=== PATIENT | male | born 1940 | race Caucasian/White ===

== ENCOUNTER 2018-12-17 03:53 | Emergency (ER) | payer MEDICARE, OTHER ==
[2018-12-17] MEDS ORDERED: Lidocaine 2% Jelly 10 ML Urojet MUCMEM ONE (04:03)
[2018-12-17] MEDS ORDERED: Lidocaine 2% Jelly 10 ML Urojet ONE (04:08)
--- NOTE | 2018-12-17 04:26 | EDM.PDOC ---
ED HPI GENERAL MEDICAL PROBLEM - General Stated Complaint: CANT PEE Time Seen by Provider: 12/17/18 03:55 Source of Information: Reports: Patient History Limitations: Reports: No Limitations - History of Present Illness INITIAL COMMENTS - FREE TEXT/NARRATIVE: 78-year-old male who has had ongoing problems with hematuria after radiation for prostate cancer. He had some hematuria a year ago and the urologists did a cystoscopy and cauterized some spots. He started redeveloping hematuria a month ago, the radiologist did a cystoscopy at that time and did not do any intervention. Unfortunately the bleeding has persisted and tonight he developed some large clots that caused urinary obstruction. He tried to self catheterize himself but was unsuccessful. He arrived very uncomfortable with acute urinary retention. He does not feel ill or feverish. Onset: Gradual Associated Symptoms: Reports: No Other Symptoms Bladder Pain Score (Numeric/FACES): 10 - Related Data Allergies Allergy/AdvReac Type Severity Reaction Status Date / Time No Known Allergies Allergy Verified 12/17/18 08:36 Home Meds: Home Meds Amitriptyline [Elavil] 25 mg PO BEDTIME 12/17/18 [History] Linagliptin [Tradjenta] 1 tab PO DAILY 12/17/18 [History] Losartan [Cozaar] 100 mg PO DAILY 12/17/18 [History] Omeprazole 1 tab PO BID 12/17/18 [History] amLODIPine [Norvasc] 5 mg PO DAILY 12/17/18 [History] metFORMIN [Glucophage] 500 mg PO BIDMEALS 12/17/18 [History] predniSONE [Prednisone] 1 tab PO ASDIRECTED 12/17/18 [History] ED ROS GENERAL - Review of Systems Review Of Systems: See Below Constitutional: Denies: Fever, Chills Respiratory: Denies: Shortness of Breath Cardiovascular: Denies: Chest Pain GI/Abdominal: Reports: Abdominal Pain, Distension : Reports: Urinary Retention ED EXAM, RENAL/ - Physical Exam Exam: See Below Exam Limited By: No Limitations General Appearance: Alert, Moderate Distress Respiratory/Chest: No Respiratory Distress GI/Abdominal: Distended, Tender (Male) Exam: Suprapubic Fullness, Other (Patient had some blood at the urethral meatus) Course - Vital Signs Last Recorded V/S: Last Vital Signs Temp 97.2 F 12/17/18 04:28 Pulse 117 H 12/17/18 04:28 Resp 14 12/17/18 04:28 BP 141/80 H 12/17/18 04:28 Pulse Ox 96 12/17/18 04:28 - Orders/Labs/Meds Meds: Medications Discontinued Medications Generic Name Dose Route Start Last Admin Trade Name Jared PRN Reason Stop Dose Admin Lidocaine HCl 10 ml 12/17/18 04:03 12/17/18 04:28 Xylocaine 2% Jelly MUCMEM 12/17/18 04:04 10 ml ONETIME ONE Administration Lidocaine HCl Confirm 12/17/18 04:08 Xylocaine 2% Jelly Administered 12/17/18 04:09 Dose 10 ml .ROUTE .STK-MED ONE - Re-Assessments/Exams Free Text/Narrative Re-Assessment/Exam: 12/17/18 04:25 Using a Urojet for anesthesia, an indwelling Jacobson was placed by nursing with some difficulty due to large blood clots. Once the blood clots were expelled, a Jacobson was placed and 500 mL of bloody urine was released. The patient's symptoms resolved. The Jacobson will remain in place until he can call his urologist in the next 24 hours. He needs to return if obstruction recurs. Departure - Departure Time of Disposition: 05:10 Disposition: Home, Self-Care 01 Clinical Impression: Acute urinary retention Hematuria Qualifiers: Hematuria type: gross Qualified Code(s): R31.0 - Gross hematuria - Discharge Information Instructions: Acute Urinary Retention, Male Referrals: PCP,None [Primary Care Provider] - Forms: ED Department Discharge Care Plan Goals: Leave the catheter in place until you have a chance to talk to your urologist. Return if you read develop obstruction despite the catheter being in place.
== END 2018-12-17 05:05 | disposition home or self-care (01) ==
LOC: JP.ED 03:53
DX: R33.9 Retention of urine, unspecified (principal); R31.0 Gross hematuria; Z79.899 Other long term (current) drug therapy
CPT/HCPCS: 51702; 51798; 99283

== ENCOUNTER 2018-12-17 07:59 | Inpatient (IN) | payer MEDICARE, OTHER ==
--- NOTE | 2018-12-17 08:51 | EDM.PDOC ---
ED HPI GENERAL MEDICAL PROBLEM - General Chief Complaint: Genitourinary Problem Stated Complaint: UNABLE TO URINATE Time Seen by Provider: 12/17/18 08:35 Source of Information: Reports: Patient, Old Records, RN History Limitations: Reports: No Limitations - History of Present Illness INITIAL COMMENTS - FREE TEXT/NARRATIVE: 78 yo male presents with grossly bloody urine and a plugged catheter. He was seen a few hrs ago for this as well. He is going to be following up with urology for the bloody urine. He denies CP, SOB, hx of afib, or dizziness with standing. He is not aware of his heart beating fast. He has no hx of tachycardia that he is aware of. He has not missed any of his home meds lately. Onset: Today (duran plugging. Is not aware of the tachycardia, but his HR when here a few hrs ago was 117.) Onset Date: 12/17/18 Duration: Hour(s): (duran issue. Unsure about the tachycardia.) Location: Reports: Chest, Pelvis (bladder distention.) Quality: Reports: Pressure (bladder) Improves with: Reports: Other (relief earlier today with duran irrigation. ) Worsens with: Reports: Other (time) Context: Reports: Other (hx of prostate issues.) Associated Symptoms: Reports: Other (tachycardia that he was not aware of. ) Treatments MIGRATION SPECIALIST: Reports: Other (see below) (none) bladder Pain Score (Numeric/FACES): 10 - Related Data Allergies Allergy/AdvReac Type Severity Reaction Status Date / Time No Known Allergies Allergy Verified 12/17/18 08:36 Home Meds: Home Meds Amitriptyline [Elavil] 25 mg PO BEDTIME 12/17/18 [History] Linagliptin [Tradjenta] 1 tab PO DAILY 12/17/18 [History] Losartan [Cozaar] 100 mg PO DAILY 12/17/18 [History] Omeprazole 1 tab PO BID 12/17/18 [History] amLODIPine [Norvasc] 5 mg PO DAILY 12/17/18 [History] metFORMIN [Glucophage] 500 mg PO BIDMEALS 12/17/18 [History] predniSONE [Prednisone] 1 tab PO ASDIRECTED 12/17/18 [History] Past Medical History Genitourinary History: Reports: Other (See Below) Other Genitourinary History: prostate cancer - Infectious Disease History Infectious Disease History: Reports: Chicken Pox - Past Surgical History Male Surgical History: Reports: Prostate Biopsy, Prostatectomy Social & Family History - Caffeine Use Caffeine Use: Reports: Coffee ED ROS GENERAL - Review of Systems Review Of Systems: See Below Constitutional: Reports: No Symptoms HEENT: Reports: No Symptoms Respiratory: Reports: No Symptoms Cardiovascular: Reports: No Symptoms Endocrine: Reports: No Symptoms GI/Abdominal: Reports: No Symptoms : Reports: Hematuria, Other (bladder pressure.) Musculoskeletal: Reports: No Symptoms Skin: Reports: No Symptoms Neurological: Reports: No Symptoms Psychiatric: Reports: No Symptoms ED EXAM, RENAL/ - Physical Exam Exam: See Below Exam Limited By: No Limitations General Appearance: Alert, WD/WN, No Apparent Distress Eye Exam: Bilateral Eye: Normal Inspection Ears: Normal External Exam, Normal Canal, Hearing Grossly Normal, Normal TMs Nose: Normal Inspection, No Blood Throat/Mouth: Normal Inspection, Normal Lips, Normal Oropharynx, Normal Voice, No Airway Compromise Head: Atraumatic, Normocephalic Neck: Normal Inspection Respiratory/Chest: No Respiratory Distress, Lungs Clear, Normal Breath Sounds, No Accessory Muscle Use Cardiovascular: Regular Rate, Rhythm, No Edema, Tachycardia. No: Irregularly Irregular GI/Abdominal: Normal Bowel Sounds, Soft, Non-Tender, No Distention (Male) Exam: Other (duran has grossly red color to urine.) Back Exam: Normal Inspection Extremities: Normal Inspection, Normal Range of Motion, Non-Tender, No Pedal Edema Neurological: Alert, Oriented, CN II-XII Intact, Normal Cognition, No Motor/ Sensory Deficits Psychiatric: Normal Affect, Normal Mood Skin Exam: Warm, Dry, Intact, Normal Color, No Rash EKG INTERPRETATION EKG Date: 12/17/18 Time: 08:35 Rhythm: NSR Rate (Beats/Min): 124 [employer]: Normal P-Wave: Present QRS: Normal ST-T: Normal QT: Normal Comparison: NA - No Prior EKG Course - Vital Signs Text/Narrative:: Dr. Millan called @ 0930h Last Recorded V/S: Last Vital Signs Temp 36.8 C 12/17/18 09:08 Pulse 133 H 12/17/18 09:08 Resp 28 H 12/17/18 09:08 BP 174/73 H 12/17/18 09:08 Pulse Ox 98 12/17/18 09:08 Orthostatic Blood Pressure [ 116/48 Standing] Orthostatic Blood Pressure [ 174/73 Sitting] Orthostatic Blood Pressure [ 179/92 Supine] - Orders/Labs/Meds Orders: Active Orders 24 hr Category Date Time Status Cardiac Monitoring [RC] .As Directed Care 12/17/18 08:40 Active EKG Documentation Completion [RC] ASDIRECTED Care 12/17/18 08:40 Active Orthostatic Vital Signs [RC] ASDIRECTED Care 12/17/18 08:45 Active CULTURE URINE [RM] Stat Lab 12/17/18 09:25 Ordered D-DIMER QUANTITATIVE [COAG] Stat Lab 12/17/18 09:26 Ordered Lactated Ringers [Ringers, Lactated] 1,000 ml Med 12/17/18 09:25 Active IV BOLUS EKG 12 Lead [EK] Routine Ther 12/17/18 08:40 Ordered Medication Orders Lactated Ringer's (Ringers, Lactated) 1,000 mls @ 1,000 mls/hr IV BOLUS ONE Stop: 12/17/18 10:24 Labs: Laboratory Tests 12/17/18 12/17/18 12/17/18 Range/Units 08:50 08:50 08:50 WBC 7.6 (4.5-11.0) K/uL RBC 3.99 L (4.30-5.90) M/uL Hgb 10.6 L (12.0-15.0) g/dL Hct 34.7 L (40.0-54.0) % MCV 87 (80-98) fL MCH 27 (27-31) pg MCHC 31 L (32-36) % Plt Count 86 L (150-400) K/uL Sodium 134 L (140-148) mmol/L Potassium 4.6 (3.6-5.2) mmol/L Chloride 98 L (100-108) mmol/L Carbon Dioxide 25 (21-32) mmol/L Anion Gap 15.6 H (5.0-14.0) mmol/L BUN 18 (7-18) mg/dL Creatinine 1.4 H (0.8-1.3) mg/dL Est Cr Clr Drug Dosing 46.35 mL/min Estimated GFR (MDRD) 49 L (>60) Glucose 240 H (74-106) mg/dL Lactic Acid 3.2 H (0.4-2.0) mmol/L Calcium 9.9 (8.5-10.1) mg/dL Troponin I < 0.017 (0.000-0.056) ng/mL Meds: Medications Generic Name Dose Route Start Last Admin Trade Name Jasonq PRN Reason Stop Dose Admin Lactated Ringer's 1,000 mls @ 1,000 mls/hr 12/17/18 09:25 Ringers, Lactated IV 12/17/18 10:24 BOLUS ONE Departure - Departure Time of Disposition: 09:50 Disposition: Admitted As Inpatient 68 Condition: Fair Clinical Impression: Gross hematuria, Orthostatic hypotension, Tachycardia, Elevated lactic acid level, Elevated glucose Anemia Qualifiers: Anemia type: iron deficiency Iron deficiency anemia type: chronic blood loss Qualified Code(s): D50.0 - Iron deficiency anemia secondary to blood loss ( chronic) - Discharge Information *PRESCRIPTION DRUG MONITORING PROGRAM REVIEWED*: No *COPY OF PRESCRIPTION DRUG MONITORING REPORT IN PATIENT WILFREDO: No Referrals: PCP,None [Primary Care Provider] - Forms: ED Department Discharge - My Orders Last 24 Hours: My Active Orders 12/17/18 08:40 Cardiac Monitoring [RC] .As Directed EKG Documentation Completion [RC] ASDIRECTED EKG 12 Lead [EK] Routine 12/17/18 08:45 Orthostatic Vital Signs [RC] ASDIRECTED 12/17/18 09:25 CULTURE URINE [RM] Stat Lactated Ringers [Ringers, Lactated] 1,000 ml IV BOLUS 12/17/18 09:26 D-DIMER QUANTITATIVE [COAG] Stat - Assessment/Plan Last 24 Hours: My Active Orders 12/17/18 08:40 Cardiac Monitoring [RC] .As Directed EKG Documentation Completion [RC] ASDIRECTED EKG 12 Lead [EK] Routine 12/17/18 08:45 Orthostatic Vital Signs [RC] ASDIRECTED 12/17/18 09:25 CULTURE URINE [RM] Stat Lactated Ringers [Ringers, Lactated] 1,000 ml IV BOLUS 12/17/18 09:26 D-DIMER QUANTITATIVE [COAG] Stat
[2018-12-17] MEDS ORDERED: Lactated Ringers 1,000 ML IV ONE (09:25)
[2018-12-17] MEDS ORDERED: Sodium Chloride 0.9% 10 ML Syringe FLUSH ONE (10:11)
[2018-12-17] MEDS ORDERED: Sodium Chloride 0.9% 80 ML IV ONE (10:11)
[2018-12-17] MEDS ORDERED: Iopamidol 755 Mg/ML 100 ML Bottle IV SCH (10:15)
[2018-12-17] MEDS ORDERED: Belladonna Alkaloids/Opium 16.2-30 MG Supp RECTAL ONE (11:20)
[2018-12-17] MEDS ORDERED: HYDROmorphone 0.5 MG/0.5 ML Syringe IVPUSH ONE (11:27)
[2018-12-17] MEDS ORDERED: Lidocaine 2% Jelly 10 ML Urojet MUCMEM ONE (11:31)
[2018-12-17] MEDS ORDERED: Sodium Chloride 0.9% 1,000 ML IV SCH ×2 (12:00→15:45)
--- NOTE | 2018-12-17 12:06 | CRLCT ---
HISTORY: Tachycardia, elevated D-dimer. TECHNIQUE: Intravenous contrast enhanced CT of the chest. 80 mL of Isovue-370 intravenous contrast administered. COMPARISON: No prior. FINDINGS: There is no acute pulmonary embolism. No thoracic aortic aneurysm. Coronary arteriosclerotic vascular calcifications. Trace pericardial fluid likely physiologic. Increased number of mediastinal lymph nodes in the prevascular, paratracheal and subcarinal distributions. 1.1 cm short axis right paratracheal lymph node is seen on image 445 series 4. 1 cm short axis prevascular lymph node image #64 series 4. 1.3 cm short axis subcarinal lymph node image #77. Small axillary lymph nodes are not enlarged by imaging criteria. There are calcified left hilar lymph nodes likely related prior granulomatous infection. - There are areas of subpleural reticulation within both lungs with spur ground-glass opacity. Some traction bronchiectasis is noted, especially within the right lower lobe. This may indicate that the interstitial opacities relate to pulmonary fibrosis. Linear atelectasis or scarring within the lingula and right upper lobe anteriorly. 4 mm right middle lobe pulmonary nodule image #92 of series 4. Slight nodularity along the major fissure on the right. No pleural effusion or pneumothorax. No endotracheal or proximal endobronchial mass. - Degenerative changes of the spine. There are sclerotic lesions involving multiple thoracic vertebral bodies and ribs compatible with metastases. - Limited evaluation the upper abdomen demonstrates probable fatty infiltration of liver. IMPRESSION: 1. No acute pulmonary embolism. 2. Mild mediastinal adenopathy. 3. Areas of subpleural reticulation and within the right lower lobe traction bronchiectasis which may indicate fibrosis. 4. A few small subpleural pulmonary nodules. 5. 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 Does the patient have prostate cancer? Dictated by Everardo Camargo MD @ 12/17/2018 12:04:25 PM Please note that all CT scans at this facility use dose modulation, iterative reconstruction, and/or weight-based dosing when appropriate to reduce radiation dose to as low as reasonably achievable. Dictated by: Everardo Camargo MD @ 12/17/2018 12:04:28 (Electronically Signed)
[2018-12-17] MEDS ORDERED: Sodium Chloride 0.9% 10 ML Syringe FLUSH PRN (12:17)
[2018-12-17] MEDS ORDERED: Lactated Ringers 1,000 ML IV SCH (12:30)
--- NOTE | 2018-12-17 12:32 | PCM.HP ---
H&P History of Present Illness - General Date of Service: 12/17/18 Admit Problem/Dx: Admission Diagnosis/Problem Admission Diagnosis/Problem Complicated urinary tract infection Source of Information: Family, Provider. No: Patient History Limitations: Reports: Altered Mental Status - History of Present Illness Initial Comments - Free Text/Narative: CC: I can't pancho Lopez presents to the emergency room with his niece not too long after a discharge from the emergency room where he had initially presented with hematuria. After having a Jacobson catheter placed his abdominal pain was resolved and he was able to pass urine although it remained bloody. He did not have any complaints at that time and wished to go home. He returned a short while later after the catheter had apparently plugged and he was unable to pass urine. He is very lethargic at this time and is unable to answer any questions. History is gathered from the em personnel and from his niece. She reports off and on difficulties with hematuria over the past 2 days. He was very uncomfortable because of the blood clots and probable urinary retention. He had not reported any fevers or chills. Appetite had been normal. Mentation had been normal. He had been telling them that he felt well other than the abdominal pain from the urinary retention. He has had 2 similar episodes in the past, one which required cystoscopy and cauterization and 1 which resolved after a couple of days. Workup in the emergency room was suggestive of a complicated urinary tract infection with gross hematuria and sepsis. He did have an elevated d-dimer so a CT pulmonary angiogram was completed and did not show any evidence for pulmonary embolism. He has received a 30 mL/kg bolus of IV fluids. Cultures have been obtained. He is receiving IV antibiotics. a three-way Jacobson catheter for irrigation has been inserted. He will be admitted to the intensive care unit for further management. bladder Pain Score (Numeric/FACES): 10 - Related Data Allergies/Adverse Reactions: Allergies Allergy/AdvReac Type Severity Reaction Status Date / Time No Known Allergies Allergy Verified 12/17/18 08:36 Home Medications: Home Meds Amitriptyline [Elavil] 25 mg PO BEDTIME 12/17/18 [History] Linagliptin [Tradjenta] 1 tab PO DAILY 12/17/18 [History] Losartan [Cozaar] 100 mg PO DAILY 12/17/18 [History] Omeprazole 1 tab PO BID 12/17/18 [History] amLODIPine [Norvasc] 5 mg PO DAILY 12/17/18 [History] metFORMIN [Glucophage] 500 mg PO BIDMEALS 12/17/18 [History] predniSONE [Prednisone] 1 tab PO ASDIRECTED 12/17/18 [History] Past Medical History HEENT History: Reports: Impaired Vision Cardiovascular History: Reports: High Cholesterol, Hypertension Genitourinary History: Reports: Other (See Below) Other Genitourinary History: prostate cancer Endocrine/Metabolic History: Reports: Diabetes, Type II Oncologic (Cancer) History: Reports: Prostate - Infectious Disease History Infectious Disease History: Reports: Chicken Pox - Past Surgical History Male Surgical History: Reports: Prostate Biopsy, Prostatectomy Social & Family History - Family History Family Medical History: Unobtainable - Tobacco Use Smoking Status *Q: Never Smoker Second Hand Smoke Exposure: No - Caffeine Use Caffeine Use: Reports: Coffee - Alcohol Use Alcohol Use History: No - Recreational Drug Use Recreational Drug Use: No H&P Review of Systems - Review of Systems: Review Of Systems: Unable To Obtain (pt very lethargic and unable to provide reliable history) Exam - Exam Exam: See Below - Vital Signs Vital Signs: Last Vital Signs Temp 36.8 C 12/17/18 09:08 Pulse 133 H 12/17/18 09:08 Resp 28 H 12/17/18 09:08 BP 174/73 H 12/17/18 09:08 Pulse Ox 98 12/17/18 09:08 Orthostatic Blood Pressure [ 116/48 Standing] Orthostatic Blood Pressure [ 174/73 Sitting] Orthostatic Blood Pressure [ 179/92 Supine] Weight: 99.79 kg - Exam Quality Assessment: No: Supplemental Oxygen General: Alert, Mild Distress, Lethargic. No: Oriented HEENT: Conjunctiva Clear. No: Mucosa Moist & [place] (dry), Scleral Icterus Neck: Supple, Trachea Midline. No: Lymphadenopathy Lungs: Clear to Auscultation. No: Normal Respiratory Effort (increased work of breathing ), Crackles Cardiovascular: Regular Rhythm, Tachycardia GI/Abdominal Exam: Normal Bowel Sounds, Soft, Non-Tender, No Distention Extremities: No Pedal Edema. No: Increased Warmth Skin: Warm, Dry Neuro Extensive - Mental Status: Alert, Slow Response to Commands. No: Oriented x3 Neuro Extensive - Motor, Sensory, Reflexes: No: Abnormal Motor, Tremor Psychiatric: Alert. No: Agitated - Patient Data Lab Results Last 24 hrs: Laboratory Results - last 24 hr 12/17/18 12/17/18 12/17/18 Range/Units 08:50 08:50 08:50 WBC 7.6 (4.5-11.0) K/uL RBC 3.99 L (4.30-5.90) M/uL Hgb 10.6 L (12.0-15.0) g/dL Hct 34.7 L (40.0-54.0) % MCV 87 (80-98) fL MCH 27 (27-31) pg MCHC 31 L (32-36) % Plt Count 86 L (150-400) K/uL D-Dimer, Quantitative (0.0-400.0) ng/mL Sodium 134 L (140-148) mmol/L Potassium 4.6 (3.6-5.2) mmol/L Chloride 98 L (100-108) mmol/L Carbon Dioxide 25 (21-32) mmol/L Anion Gap 15.6 H (5.0-14.0) mmol/L BUN 18 (7-18) mg/dL Creatinine 1.4 H (0.8-1.3) mg/dL Est Cr Clr Drug Dosing 46.35 mL/min Estimated GFR (MDRD) 49 L (>60) Glucose 240 H (74-106) mg/dL Lactic Acid 3.2 H (0.4-2.0) mmol/L Calcium 9.9 (8.5-10.1) mg/dL Troponin I < 0.017 (0.000-0.056) ng/mL 12/17/18 Range/Units 09:26 WBC (4.5-11.0) K/uL RBC (4.30-5.90) M/uL Hgb (12.0-15.0) g/dL Hct (40.0-54.0) % MCV (80-98) fL MCH (27-31) pg MCHC (32-36) % Plt Count (150-400) K/uL D-Dimer, Quantitative 496 H (0.0-400.0) ng/mL Sodium (140-148) mmol/L Potassium (3.6-5.2) mmol/L Chloride (100-108) mmol/L Carbon Dioxide (21-32) mmol/L Anion Gap (5.0-14.0) mmol/L BUN (7-18) mg/dL Creatinine (0.8-1.3) mg/dL Est Cr Clr Drug Dosing mL/min Estimated GFR (MDRD) (>60) Glucose (74-106) mg/dL Lactic Acid (0.4-2.0) mmol/L Calcium (8.5-10.1) mg/dL Troponin I (0.000-0.056) ng/mL Result Diagrams: 12/17/18 08:50 12/17/18 08:50 Imaging Impressions Last 24 hrs: CT chest angio - images personally reviewed - lung are clear. No PE, mass, infiltrate or effusion. *Q Meaningful Use (ADM) - VTE *Q VTE Pharmacological Contraindications *Q: Active Hemorrhage - VTE Risk Assess *Q Each Risk Factor Represents 1 Point: Obesity ( BMI > 25 kg/m2), Sepsis Total Score 1 Point Risk Factors: 2 Each Risk Factor Represents 2 Points: Malignancy (present or previous) Total Score 2 Point Risk Factors: 2 Each Risk Factor Represents 3 Points: Age 75 Years or Greater Total Score 3 Point Risk Factors: 3 Each Risk Factor Represents 5 Points: None Total Score 5 Point Risk Factors: 0 Venous Thromboembolism Risk Factor Score *Q: 7 - Problem List (1) Complicated urinary tract infection SNOMED Code(s): 66914625 ICD Code: N39.0 - URINARY TRACT INFECTION, SITE NOT SPECIFIED Status: Acute Current Visit: Yes (2) Sepsis SNOMED Code(s): 09920283 ICD Code: A41.9 - SEPSIS, UNSPECIFIED ORGANISM Status: Acute Current Visit: Yes Qualifiers: Sepsis type: sepsis due to unspecified organism Qualified Code(s): A41.9 - Sepsis, unspecified organism (3) Gross hematuria SNOMED Code(s): 250267793 ICD Code: R31.0 - GROSS HEMATURIA Status: Acute Current Visit: Yes (4) KAIN (acute kidney injury) SNOMED Code(s): 09060385, 11980785 ICD Code: N17.9 - ACUTE KIDNEY FAILURE, UNSPECIFIED Status: Acute Current Visit: Yes (5) Essential hypertension SNOMED Code(s): 07491266 ICD Code: I10 - ESSENTIAL (PRIMARY) HYPERTENSION Status: Chronic Current Visit: Yes (6) Diabetes mellitus type 2 in obese SNOMED Code(s): 05234414 ICD Code: E11.69 - TYPE 2 DIABETES MELLITUS WITH OTHER SPECIFIED COMPLICATION ; E66.9 - OBESITY, UNSPECIFIED Status: Chronic Current Visit: Yes Problem List Initiated/Reviewed/Updated: Yes Orders Last 24hrs: Active Orders 24 hr Category Date Time Status Patient Status Manage Transfer [TRANSFER] Routine ADT 12/17/18 12:19 Ordered Cardiac Monitoring [RC] .As Directed Care 12/17/18 08:40 Active EKG Documentation Completion [RC] ASDIRECTED Care 12/17/18 08:40 Active Jacobson Catheter Insertion [Insert Urinary Catheter] [OM. Care 12/17/18 11:30 Ordered PC] Q24H Orthostatic Vital Signs [RC] ASDIRECTED Care 12/17/18 08:45 Active Peripheral IV Care [RC] . DIRECTED Care 12/17/18 12:17 Active Urinary Catheter Assessment [RC] ASDIRECTED Care 12/17/18 11:30 Active CULTURE BLOOD [BC] Stat Lab 12/17/18 12:10 Received CULTURE BLOOD [BC] Stat Lab 12/17/18 12:14 Received CULTURE URINE [RM] Stat Lab 12/17/18 09:34 Received Iopamidol [Isovue-370 (76%)] Med 12/17/18 10:15 Active 100 ml IV . DIRECTED Lactated Ringers [Ringers, Lactated] 1,000 ml Med 12/17/18 12:30 Active IV ASDIRECTED Sodium Chloride 0.9% [Normal Saline] 1,000 ml Med 12/17/18 12:00 Active IV ASDIRECTED Sodium Chloride 0.9% [Saline Flush] Med 12/17/18 12:17 Active 10 ml FLUSH ASDIRECTED PRN cefTAZidime Pentahydrate [Fortaz] 1 gm Med 12/17/18 14:00 Active Sodium Chloride 0.9% [Normal Saline] 50 ml IV Q8HR Peripheral IV Insertion Adult [OM.PC] Routine Oth 12/17/18 12:17 Ordered Resuscitation Status Routine Resus Stat 12/17/18 12:20 Ordered EKG 12 Lead [EK] Routine Ther 12/17/18 08:40 Ordered Medication Orders Ceftazidime 1 gm/ Sodium (Chloride) 50 mls @ 100 mls/hr IV Q8HR LAZARO Sodium Chloride (Normal Saline) 1,000 mls @ 999 mls/hr IV ASDIRECTED [facility] Stop: 12/17/18 13:01 Last Admin: 12/17/18 12:18 Dose: 999 mls/hr Lactated Ringer's (Ringers, Lactated) 1,000 mls @ 999 mls/hr IV ASDIRECTED [facility] Stop: 12/17/18 13:31 Iopamidol (Isovue-370 (76%)) 100 ml IV . DIRECTED [facility] Stop: 12/18/18 10:16 Last Admin: 12/17/18 10:49 Dose: 80 ml Sodium Chloride (Saline Flush) 10 ml FLUSH ASDIRECTED PRN PRN Reason: Keep Vein Open Assessment/Plan Comment:: ASSESSMENT AND PLAN - Complicated urinary tract infection with sepsis - patient is very tachycardic, lactic acid is elevated and he is very lethargic. Suspected source of infection as the urinary tract with recent self-catheterization and obvious gross hematuria. Blood and urine cultures have been obtained. IV fluid boluses administered. Broad-spectrum antibiotics initiated. -Intensive care unit admission -continue ceftazidime -Gentle fluids -Stress dose steroids with chronic use -Repeat lactic acid level -Low threshold to initiate vasopressors of hypotensive Gross hematuria - history of prostate cancer and radiation. 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 Fairly impressive hematuria at this time with clots and Jacobson catheter was not adequate to drain the bladder. A three-week catheter has been inserted. -Continuous bladder irrigation to keep urine light pink to clear -Repeat hemoglobin in the morning -Infection management as above Acute kidney injury - creatinine elevated at 1.4 with unknown baseline but no history of kidney disease. Likely related to sepsis. -Management as above and labs in the morning Type 2 diabetes mellitus - on only oral medications and well controlled by history. -Hold metformin Essential hypertension - did not take meds this morning, blood pressure is elevated but I'm very concerned that he may progress to hypotension with his sepsis so I will hold his medications for now. Prostate cancer - history of radiation to the prostate. Additional history unobtainable at this time. Maintenance issues - - DVT prophylaxis - mechanical - GI prophylaxis - IV PPI - Nutrition - as tolerated - Jacobson catheter - three-way irrigating catheter placed in the emergency room CODE STATUS - full code Admission justification - This patient will be admitted for inpatient services and is medically appropriate meeting medical necessity for inpatient admission as outlined in my documentation. I reasonably expect the patient will require inpatient services that span a period time over 2 midnights. I reasonably expect this patient to be discharged or transferred within 96 hours [facility]. Disposition - I would anticipate discharge home after the hospital stay Primary care physician - in [place] in [place] Marques Millan M.D.
[2018-12-17] MEDS: Acetaminophen 500 MG Tab PO ONE ×2 (12:40→12:46)
[2018-12-17] MEDS ORDERED: Acetaminophen 650 MG Supp RECTAL ONE (12:47)
[2018-12-17] MEDS ORDERED: Albuterol 0.083% 2.5 MG/3 ML Neb Soln NEB PRN (14:14)
[2018-12-17] MEDS ORDERED: Ondansetron 4 MG/2 ML SDV IV PRN (14:14)
[2018-12-17] MEDS ORDERED: Magnesium Hydroxide 400 MG/5 ML Susp 30 ML Cup PO PRN (14:14)
[2018-12-17] MEDS ORDERED: Ondansetron 4 MG Tab.DIS PO PRN (14:14)
[2018-12-17] MEDS: Sodium Chloride 0.9% 1,000 ML IV SCH (15:24)
[2018-12-17] MEDS ORDERED: Hydrocortisone Sodium Succinate 100 MG/2 ML SDV IVPUSH ONE (15:30)
[2018-12-17] MEDS: Ketorolac 30 MG/ML SDV IVPUSH PRN ×2 (15:36→21:40)
[2018-12-17] MEDS ORDERED: Pantoprazole 40 MG Vial IV SCH (16:00)
[2018-12-17] MEDS ORDERED: Sodium Chloride 0.9% 1,000 ML IV ONE (18:21)
[2018-12-17] MEDS: Acetaminophen 325 MG Tab PO PRN (21:42)
[2018-12-17] MEDS: LORazepam 2 MG/ML SDV IVPUSH PRN (21:56)
[2018-12-17] MEDS: Norepinephrine 4 MG in Dextrose 5% in Water 246 ML IV SCH ×2 (23:04)
[2018-12-18] MEDS: Sodium Chloride 0.9% 1,000 ML IV SCH ×3 (00:14→14:25)
[2018-12-18] MEDS ORDERED: Vancomycin 2 GM in Sodium Chloride 0.9% 500 ML IV ONE (01:30)
[2018-12-18] MEDS ORDERED: Vancomycin 1 GM SDV ONE (02:02)
[2018-12-18] MEDS: Norepinephrine 4 MG in Dextrose 5% in Water 246 ML IV SCH ×4 (07:17→16:44)
[2018-12-18] MEDS: HYDROmorphone 0.5 MG/0.5 ML Syringe IVPUSH PRN ×2 (08:30→17:56)
[2018-12-18] MEDS ORDERED: Ketorolac 30 MG/ML SDV IVPUSH PRN (08:35)
--- NOTE | 2018-12-18 09:22 | PCM.PN ---
- General Info Date of Service: 12/18/18 Subjective Update: Overnight the patient had persistent tachycardia and did develop hypotension despite aggressive volume resuscitation. He was started on norepinephrine and this was titrated to 9 g. Vital signs have stabilized with blood pressure maintaining with this dose of norepinephrine. Heart rate has been slowly declining is down to around 120 today. He did not have any fevers overnight. Urine culture and all 4 blood cultures are growing gram-negative rods. He is more awake and alert today. He is eating breakfast. No complaints of abdominal pain except when clots in the bladder clog his catheter. Ongoing hematuria which is fairly impressive. Functional Status: Reports: Pain Controlled, Tolerating Diet - Review of Systems Genitourinary: Reports: Pain - Patient Data Vitals - Most Recent: Last Vital Signs Temp 36.4 C 12/18/18 04:00 Pulse 97 12/18/18 07:00 Resp 20 12/18/18 07:00 BP 109/63 12/18/18 07:00 Pulse Ox 95 12/18/18 07:00 Orthostatic Blood Pressure [ 116/48 Standing] Orthostatic Blood Pressure [ 174/73 Sitting] Orthostatic Blood Pressure [ 179/92 Supine] Weight - Most Recent: 99.79 kg I&O - Last 24 Hours: Intake & Output 12/17/18 12/18/18 12/18/18 22:59 06:59 14:59 Intake Total 2300 3660 1500 Output Total 3000 Balance 2300 3660 -1500 Lab Results Last 24 Hours: Laboratory Results - last 24 hr 12/17/18 12/17/18 12/17/18 Range/Units 09:26 14:14 20:00 WBC (4.5-11.0) K/uL RBC (4.30-5.90) M/uL Hgb (12.0-15.0) g/dL Hct (40.0-54.0) % MCV (80-98) fL MCH (27-31) pg MCHC (32-36) % Plt Count (150-400) K/uL D-Dimer, Quantitative 496 H (0.0-400.0) ng/mL Sodium (140-148) mmol/L Potassium (3.6-5.2) mmol/L Chloride (100-108) mmol/L Carbon Dioxide (21-32) mmol/L Anion Gap (5.0-14.0) mmol/L BUN (7-18) mg/dL Creatinine (0.8-1.3) mg/dL Est Cr Clr Drug Dosing mL/min Estimated GFR (MDRD) (>60) Glucose (74-106) mg/dL Lactic Acid 6.6 H 6.6 H (0.4-2.0) mmol/L Calcium (8.5-10.1) mg/dL 12/18/18 12/18/18 12/18/18 Range/Units 00:10 04:15 04:48 WBC 28.1 H (4.5-11.0) K/uL RBC 3.36 L (4.30-5.90) M/uL Hgb 9.3 L (12.0-15.0) g/dL Hct 29.6 L (40.0-54.0) % MCV 88 (80-98) fL MCH 28 (27-31) pg MCHC 31 L (32-36) % Plt Count 80 L (150-400) K/uL D-Dimer, Quantitative (0.0-400.0) ng/mL Sodium (140-148) mmol/L Potassium (3.6-5.2) mmol/L Chloride (100-108) mmol/L Carbon Dioxide (21-32) mmol/L Anion Gap (5.0-14.0) mmol/L BUN (7-18) mg/dL Creatinine (0.8-1.3) mg/dL Est Cr Clr Drug Dosing mL/min Estimated GFR (MDRD) (>60) Glucose (74-106) mg/dL Lactic Acid 6.2 H 5.4 H (0.4-2.0) mmol/L Calcium (8.5-10.1) mg/dL 12/18/18 Range/Units 04:48 WBC (4.5-11.0) K/uL RBC (4.30-5.90) M/uL Hgb (12.0-15.0) g/dL Hct (40.0-54.0) % MCV (80-98) fL MCH (27-31) pg MCHC (32-36) % Plt Count (150-400) K/uL D-Dimer, Quantitative (0.0-400.0) ng/mL Sodium 139 L (140-148) mmol/L Potassium 5.3 H (3.6-5.2) mmol/L Chloride 107 (100-108) mmol/L Carbon Dioxide 21 (21-32) mmol/L Anion Gap 16.3 H (5.0-14.0) mmol/L BUN 25 H (7-18) mg/dL Creatinine 1.9 H (0.8-1.3) mg/dL Est Cr Clr Drug Dosing 34.15 mL/min Estimated GFR (MDRD) 35 L (>60) Glucose 256 H (74-106) mg/dL Lactic Acid (0.4-2.0) mmol/L Calcium 8.4 L D (8.5-10.1) mg/dL Arnold Results Last 24 Hours: Microbiology 12/17/18 12:10 Aerobic Blood Culture - Preliminary Blood - Arm, Left Anaerobic Blood Culture - Preliminary 12/17/18 12:14 Aerobic Blood Culture - Preliminary Blood - Arm, Right Anaerobic Blood Culture - Preliminary 12/17/18 09:34 Urine Culture - Preliminary Urine, Catheterized Med Orders - Current: Current Medications Acetaminophen (Tylenol) 650 mg PO Q4H PRN PRN Reason: Pain (Mild 1-3)/fever Last Admin: 12/17/18 21:42 Dose: 650 mg Albuterol (Proventil Neb Soln) 2.5 mg NEB Q4H PRN PRN Reason: Shortness Of Breath/wheezing Hydrocortisone Sodium Succinate (Solu-Cortef) 100 mg IVPUSH ONETIME ONE Stop: 12/18/18 09:31 Hydromorphone HCl (Dilaudid) 0.5 mg IVPUSH Q2H PRN PRN Reason: Pain (severe 7-10) Last Admin: 12/18/18 08:30 Dose: 0.5 mg Sodium Chloride (Normal Saline) 1,000 mls @ 100 mls/hr IV ASDIRECTED LAZARO Last Admin: 12/18/18 00:14 Dose: 100 mls/hr Ceftazidime 1 gm/ Sodium (Chloride) 50 mls @ 100 mls/hr IV Q8HR LAZARO Last Admin: 12/18/18 05:34 Dose: 100 mls/hr Norepinephrine Bitartrate 4 mg (/ Dextrose/Water) 250 mls @ 7.5 mls/hr IV TITRATE LAZARO; Protocol Last Admin: 12/18/18 07:17 Dose: 9 mcg/min, 33.75 mls/hr Insulin Human Lispro (Humalog) 0 unit SUBCUT QIDACANDBED [facility]; Protocol Ketorolac Tromethamine (Toradol) 15 mg IVPUSH Q6H PRN PRN Reason: Fever Stop: 12/22/18 12:27 Lorazepam (Ativan) 0.5 mg IVPUSH Q4H PRN PRN Reason: Nausea/Vomiting Last Admin: 12/17/18 21:56 Dose: 0.5 mg Magnesium Hydroxide (Milk Of Magnesia) 30 ml PO Q12H PRN PRN Reason: Constipation Ondansetron HCl (Zofran Odt) 4 mg PO Q6H PRN PRN Reason: Nausea able to take PO Ondansetron HCl (Zofran) 4 mg IV Q6H PRN PRN Reason: Nausea/Vomiting Pantoprazole Sodium (Protonix Iv) 40 mg IV Q24H [facility] Last Admin: 12/17/18 15:17 Dose: 40 mg Senna/Docusate Sodium (Senna Plus) 1 tab PO BID PRN PRN Reason: Constipation Sodium Chloride (Saline Flush) 10 ml FLUSH ASDIRECTED PRN PRN Reason: Keep Vein Open Discontinued Medications Acetaminophen (Tylenol Extra Strength) 1,000 mg PO ONETIME ONE Stop: 12/17/18 12:06 Last Admin: 12/17/18 12:46 Dose: Not Given Acetaminophen (Tylenol) 650 mg RECTAL NOW ONE Stop: 12/17/18 12:48 Last Admin: 12/17/18 13:14 Dose: 650 mg Belladonna Alkaloids/Opium (B & O Supprettes No. 15a) 1 supp RECTAL ONETIME ONE Stop: 12/17/18 11:21 Last Admin: 12/17/18 11:28 Dose: 1 supp Hydrocortisone Sodium Succinate (Solu-Cortef) 100 mg IVPUSH ONETIME ONE Stop: 12/17/18 15:31 Last Admin: 12/17/18 14:40 Dose: 100 mg Hydromorphone HCl (Dilaudid) 0.5 mg IVPUSH ONETIME ONE Stop: 12/17/18 11:28 Last Admin: 12/17/18 11:31 Dose: 0.5 mg Lactated Ringer's (Ringers, Lactated) 1,000 mls @ 1,000 mls/hr IV BOLUS ONE Stop: 12/17/18 10:24 Last Admin: 12/17/18 09:53 Dose: 1,000 mls/hr Sodium Chloride (Normal Saline) 80 mls @ 3.5 mls/sec IV ONETIME ONE Stop: 12/17/18 10:12 Last Admin: 12/17/18 10:49 Dose: 3.5 mls/sec Ceftazidime 1 gm/ Sodium (Chloride) 50 mls @ 100 mls/hr IV Q8HR [facility] Last Admin: 12/17/18 12:35 Dose: 100 mls/hr Sodium Chloride (Normal Saline) 1,000 mls @ 999 mls/hr IV ASDIRECTED [facility] Stop: 12/17/18 13:01 Last Admin: 12/17/18 12:18 Dose: 999 mls/hr Lactated Ringer's (Ringers, Lactated) 1,000 mls @ 999 mls/hr IV ASDIRECTED [facility] Stop: 12/17/18 13:31 Last Admin: 12/17/18 12:42 Dose: 999 mls/hr Sodium Chloride (Normal Saline) 1,000 mls @ 500 mls/hr IV ASDIRECTED [facility] Stop: 12/17/18 17:46 Last Admin: 12/17/18 16:22 Dose: 500 mls/hr Sodium Chloride (Normal Saline) 1,000 mls @ 500 mls/hr IV .BOLUS ONE Stop: 12/17/18 20:20 Last Admin: 12/17/18 18:42 Dose: 500 mls/hr Vancomycin HCl 2 gm/ Sodium (Chloride) 500 mls @ 300 mls/hr IV ONETIME ONE Stop: 12/18/18 03:09 Last Admin: 12/18/18 02:21 Dose: 300 mls/hr Iopamidol (Isovue-370 (76%)) 100 ml IV . DIRECTED [facility] Stop: 12/18/18 10:16 Last Admin: 12/17/18 10:49 Dose: 80 ml Ketorolac Tromethamine (Toradol) 30 mg IVPUSH Q6H PRN PRN Reason: Fever Stop: 12/22/18 12:27 Last Admin: 12/17/18 21:40 Dose: 30 mg Lidocaine HCl (Xylocaine 2% Jelly) 10 ml MUCMEM ONETIME ONE Stop: 12/17/18 11:32 Last Admin: 12/17/18 12:33 Dose: 10 ml Sodium Chloride (Saline Flush) 10 ml FLUSH ONETIME ONE Stop: 12/17/18 10:12 Last Admin: 12/17/18 10:50 Dose: 10 ml Vancomycin HCl (Vancomycin) Confirm Administered Dose 2 gm .ROUTE .STK-MED ONE Stop: 12/18/18 02:03 Last Admin: 12/18/18 02:34 Dose: Not Given - Exam Quality Assessment: No: Supplemental Oxygen General: Alert, Oriented, Cooperative, No Acute Distress HEENT: Pupils Equal Lungs: Clear to Auscultation, Normal Respiratory Effort Cardiovascular: Regular Rhythm, No Murmurs, Tachycardia GI/Abdominal Exam: Normal Bowel Sounds, Soft, Non-Tender, No Distention Extremities: No Pedal Edema. No: Increased Warmth Peripheral Pulses: 1+: Dorsalis Pedis (L), Dorsalis Pedis (R) Skin: Warm, Dry Psy/Mental Status: Alert, Normal Affect - Problem List & Annotations (1) Complicated urinary tract infection SNOMED Code(s): 89388204 Code(s): N39.0 - URINARY TRACT INFECTION, SITE NOT SPECIFIED Status: Acute Current Visit: Yes (2) Sepsis SNOMED Code(s): 35364522 Code(s): A41.9 - SEPSIS, UNSPECIFIED ORGANISM Status: Resolved Current Visit: Yes Qualifiers: Sepsis type: sepsis due to unspecified organism Qualified Code(s): A41.9 - Sepsis, unspecified organism (3) Gross hematuria SNOMED Code(s): 208493500 Code(s): R31.0 - GROSS HEMATURIA Status: Acute Current Visit: Yes (4) KAIN (acute kidney injury) SNOMED Code(s): 91165873, 70371780 Code(s): N17.9 - ACUTE KIDNEY FAILURE, UNSPECIFIED Status: Acute Current Visit: Yes (5) Essential hypertension SNOMED Code(s): 31864119 Code(s): I10 - ESSENTIAL (PRIMARY) HYPERTENSION Status: Chronic Current Visit: Yes (6) Diabetes mellitus type 2 in obese SNOMED Code(s): 68966463 Code(s): E11.69 - TYPE 2 DIABETES MELLITUS WITH OTHER SPECIFIED COMPLICATION ; E66.9 - OBESITY, UNSPECIFIED Status: Chronic Current Visit: Yes (7) Hyperkalemia SNOMED Code(s): 74163069 Code(s): E87.5 - HYPERKALEMIA Status: Acute Current Visit: Yes (8) Septic shock SNOMED Code(s): 03681688 Code(s): A41.9 - SEPSIS, UNSPECIFIED ORGANISM; R65.21 - SEVERE SEPSIS WITH SEPTIC SHOCK Status: Acute Current Visit: Yes - Problem List Review Problem List Initiated/Reviewed/Updated: Yes - My Orders Last 24 Hours: My Active Orders 12/17/18 12:17 Sodium Chloride 0.9% [Saline Flush] 10 ml FLUSH ASDIRECTED PRN Peripheral IV Insertion Adult [OM.PC] Routine 12/17/18 12:20 Resuscitation Status Routine 12/17/18 14:14 Patient Status [ADT] Routine Antiembolic Devices [RC] .Routine Bedrest Bedside Commode [RC] ASDIRECTED Cardiac Monitoring [RC] Q6H Communication Order [RC] ROUTINE Intake and Output [RC] QSHIFT Notify Provider Vital Signs [RC] ASDIRECTED Oxygen Therapy [RC] PRN Pulse Oximetry [RC] CONTINUOUS RT Aerosol Therapy [RC] ASDIRECTED VTE/DVT Education [RC] Per Unit Routine Vital Signs [RC] Q1HR Acetaminophen [Tylenol] 650 mg PO Q4H PRN Albuterol [Proventil Neb Soln] 2.5 mg NEB Q4H PRN Docusate Sodium/Sennosides [Senna Plus] 1 tab PO BID PRN HYDROmorphone [Dilaudid] 0.5 mg IVPUSH Q2H PRN LORazepam [Ativan] 0.5 mg IVPUSH Q4H PRN Magnesium Hydroxide [Milk of Magnesia] 30 ml PO Q12H PRN Ondansetron [Zofran ODT] 4 mg PO Q6H PRN Ondansetron [Zofran] 4 mg IV Q6H PRN Sodium Chloride 0.9% [Normal Saline] 1,000 ml IV ASDIRECTED Sequential Compression Device [OM.PC] Routine VTE Pharmacological Contraindications [AST] Routine 12/17/18 22:00 cefTAZidime Pentahydrate [Fortaz] 1 gm Sodium Chloride 0.9% [Normal Saline] 50 ml IV Q8HR 12/17/18 22:45 Norepinephrine [Levophed] 4 mg Dextrose 5% in Water 246 ml IV TITRATE 12/17/18 Lunch Consistent Carbohydrate Diet [DIET] 12/18/18 01:08 Dietary Supplements [RC] BIDMEALS 12/18/18 08:34 Blood Glucose Check, Bedside [RC] QIDACANDBED 12/18/18 08:35 Communication Order [RC] PRN Communication Order [RC] PRN Diabetes Education [RC] Click to Edit Notify Provider [RC] PRN Ketorolac [Toradol] 15 mg IVPUSH Q6H PRN 12/18/18 08:45 Insulin Lispro [HumaLOG] See Protocol SUBCUT QIDACANDBED 12/18/18 09:30 Hydrocortisone Sod Succinate [Solu-CORTEF] 100 mg IVPUSH ONETIME ONE Sodium Chloride 0.9% [Normal Saline] 1,000 ml IV ASDIRECTED 12/18/18 12:00 LACTIC ACID [CHEM] Routine 12/18/18 17:00 Pantoprazole [ProTONIX] 40 mg PO QPM 12/19/18 05:00 CBC W/O DIFF,HEMOGRAM [HEME] Timed (1) COMPREHENSIVE METABOLIC PN,CMP [CHEM] Timed MAGNESIUM [CHEM] Timed - Plan Plan:: ASSESSMENT AND PLAN - Complicated urinary tract infection with septic shock - has persistent lactic acidosis and vasopressor requirement. He has had adequate volume resuscitation. He has had stress dose steroids. Cultures are growing a gram-negative piter with identification pending. Heart rate trending down. Fever curve improving. White blood cell count did jump from yesterday up to 28,000. -continue ceftazidime -Gentle fluids -Stress dose steroids again this morning -Repeat lactic acid level tonight and in the morning -Continue vasopressors -Follow-up cultures Gross hematuria - history of prostate cancer and radiation. 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 Ongoing hematuria with intermittent clots. -Continuous bladder irrigation to keep urine light pink to clear -Repeat hemoglobin in the morning -Infection management as above Acute kidney injury - creatinine has risen to 1.9 in the setting of septic shock. I would anticipate this will start to trend down tomorrow. -Management as above and labs in the morning Type 2 diabetes mellitus - he has hyperglycemia today, oblique combination of steroids and sepsis. -Hold metformin -Medium dose sliding scale insulin Essential hypertension - hypotensive as above. -Hold home medications Prostate cancer - history of radiation to the prostate. Additional history unobtainable at this time. Maintenance issues - - DVT prophylaxis - mechanical - GI prophylaxis - IV PPI - Nutrition - as tolerated - Jacobson catheter - three-way irrigating catheter placed in the emergency room Disposition - I would anticipate discharge home after the hospital stay Marques Millan M.D.
[2018-12-18] MEDS ORDERED: Hydrocortisone Sodium Succinate 100 MG/2 ML SDV IVPUSH ONE (09:30)
[2018-12-18] MEDS: Insulin Lispro 100 Unit/ML 3 ML KwikPen SUBCUT SCH ×4 (09:35→21:55)
[2018-12-18] MEDS: Pantoprazole 40 MG Tab.CR PO SCH (16:54)
[2018-12-18] MEDS: Acetaminophen 325 MG Tab PO PRN (19:36)
[2018-12-18] MEDS: LORazepam 2 MG/ML SDV IVPUSH PRN (22:13)
[2018-12-19] MEDS: Norepinephrine 4 MG in Dextrose 5% in Water 246 ML IV SCH ×2 (03:58)
[2018-12-19] MEDS: HYDROmorphone 0.5 MG/0.5 ML Syringe IVPUSH PRN ×2 (05:03→08:16)
[2018-12-19] MEDS: Insulin Lispro 100 Unit/ML 3 ML KwikPen SUBCUT SCH ×3 (08:05→20:18)
--- NOTE | 2018-12-19 09:46 | PCM.PN ---
- General Info Date of Service: 12/19/18 Subjective Update: Patient did have a fever last night but otherwise no acute events overnight. Blood and urine cultures returned with an Escherichia coli that was ESBL +. No complaints of abdominal pain. Still has significant hematuria and requires a fairly high flow of saline even to keep the urine pink. He intermittently has difficulty with clots. Heart rate has continued to slowly improve. Lactic acid level has trended down and nearly normalized. Hemoglobin did drop overnight. His norepinephrine doses decreased to 4 g. Functional Status: Reports: Pain Controlled, Tolerating Diet - Review of Systems General: Reports: Fever, Weakness Genitourinary: Reports: Hematuria - Patient Data Vitals - Most Recent: Last Vital Signs Temp 36.9 C 12/19/18 07:00 Pulse 121 H 12/19/18 09:00 Resp 24 H 12/19/18 09:00 BP 142/55 H 12/19/18 09:00 Pulse Ox 95 12/19/18 09:00 Orthostatic Blood Pressure [ 116/48 Standing] Orthostatic Blood Pressure [ 174/73 Sitting] Orthostatic Blood Pressure [ 179/92 Supine] Weight - Most Recent: 99.79 kg I&O - Last 24 Hours: Intake & Output 12/18/18 12/19/18 12/19/18 22:59 06:59 14:59 Intake Total 98310 27727 Output Total 97838 43173 3150 Balance 1133 319 -3150 Lab Results Last 24 Hours: Laboratory Results - last 24 hr 12/18/18 12/18/18 12/19/18 Range/Units 12:00 21:15 05:00 WBC 19.0 H (4.5-11.0) K/uL RBC 2.82 L (4.30-5.90) M/uL Hgb 7.6 L (12.0-15.0) g/dL Hct 25.2 L (40.0-54.0) % MCV 89 (80-98) fL MCH 27 (27-31) pg MCHC 30 L (32-36) % Plt Count 78 L (150-400) K/uL Sodium (140-148) mmol/L Potassium (3.6-5.2) mmol/L Chloride (100-108) mmol/L Carbon Dioxide (21-32) mmol/L Anion Gap (5.0-14.0) mmol/L BUN (7-18) mg/dL Creatinine (0.8-1.3) mg/dL Est Cr Clr Drug Dosing mL/min Estimated GFR (MDRD) (>60) Glucose (74-106) mg/dL Lactic Acid 5.5 H 4.3 H (0.4-2.0) mmol/L Calcium (8.5-10.1) mg/dL Magnesium (1.8-2.4) mg/dL Total Bilirubin (0.2-1.0) mg/dL AST (15-37) U/L ALT (12-78) U/L Alkaline Phosphatase (46-116) U/L Total Protein (6.4-8.2) g/dL Albumin (3.4-5.0) g/dL Globulin (2.3-3.5) g/dL Albumin/Globulin Ratio (1.2-2.2) 12/19/18 12/19/18 Range/Units 05:00 05:00 WBC (4.5-11.0) K/uL RBC (4.30-5.90) M/uL Hgb (12.0-15.0) g/dL Hct (40.0-54.0) % MCV (80-98) fL MCH (27-31) pg MCHC (32-36) % Plt Count (150-400) K/uL Sodium 136 L (140-148) mmol/L Potassium 3.9 (3.6-5.2) mmol/L Chloride 104 (100-108) mmol/L Carbon Dioxide 22 (21-32) mmol/L Anion Gap 13.9 (5.0-14.0) mmol/L BUN 31 H (7-18) mg/dL Creatinine 1.6 H (0.8-1.3) mg/dL Est Cr Clr Drug Dosing 40.66 mL/min Estimated GFR (MDRD) 42 L (>60) Glucose 227 H (74-106) mg/dL Lactic Acid 2.8 H (0.4-2.0) mmol/L Calcium 8.1 L (8.5-10.1) mg/dL Magnesium 1.6 L (1.8-2.4) mg/dL Total Bilirubin 0.6 (0.2-1.0) mg/dL AST 80 H (15-37) U/L ALT 78 (12-78) U/L Alkaline Phosphatase 55 (46-116) U/L Total Protein 5.7 L (6.4-8.2) g/dL Albumin 2.1 L (3.4-5.0) g/dL Globulin 3.6 H (2.3-3.5) g/dL Albumin/Globulin Ratio 0.6 L (1.2-2.2) Arnold Results Last 24 Hours: Microbiology 12/17/18 12:14 Aerobic Blood Culture - Final Blood - Arm, Right (Esbl) Escherichia Coli Anaerobic Blood Culture - Final (Esbl) Escherichia Coli 12/17/18 12:10 Aerobic Blood Culture - Final Blood - Arm, Left (Esbl) Escherichia Coli Anaerobic Blood Culture - Final (Esbl) Escherichia Coli 12/17/18 09:34 Urine Culture - Final Urine, Catheterized (Esbl) Escherichia Coli Med Orders - Current: Current Medications Acetaminophen (Tylenol) 650 mg PO Q4H PRN PRN Reason: Pain (Mild 1-3)/fever Last Admin: 12/18/18 19:36 Dose: 650 mg Albuterol (Proventil Neb Soln) 2.5 mg NEB Q4H PRN PRN Reason: Shortness Of Breath/wheezing Hydrocortisone Sodium Succinate (Solu-Cortef) 100 mg IVPUSH ONETIME ONE Stop: 12/19/18 09:44 Hydromorphone HCl (Dilaudid) 0.5 mg IVPUSH Q2H PRN PRN Reason: Pain (severe 7-10) Last Admin: 12/19/18 08:16 Dose: 0.5 mg Norepinephrine Bitartrate 4 mg (/ Dextrose/Water) 250 mls @ 7.5 mls/hr IV TITRATE LAZARO; Protocol Last Titration: 12/19/18 08:23 Dose: 4 mcg/min, 15 mls/hr Sodium Chloride (Normal Saline) 1,000 mls @ 0 mls/hr IV ASDIRECTED LAZARO Last Admin: 12/18/18 14:25 Dose: 50 mls/hr Meropenem 500 mg/ Sodium (Chloride) 50 mls @ 100 mls/hr IV Q8H [facility] Insulin Human Lispro (Humalog) 0 unit SUBCUT QIDACANDBED LAZARO; Protocol Last Admin: 12/19/18 08:05 Dose: 1 units Ketorolac Tromethamine (Toradol) 15 mg IVPUSH Q6H PRN PRN Reason: Fever Stop: 12/22/18 12:27 Last Admin: 12/18/18 22:01 Dose: 15 mg Lorazepam (Ativan) 0.5 mg IVPUSH Q4H PRN PRN Reason: Nausea/Vomiting Last Admin: 12/18/18 22:13 Dose: 0.5 mg Magnesium Hydroxide (Milk Of Magnesia) 30 ml PO Q12H PRN PRN Reason: Constipation Ondansetron HCl (Zofran Odt) 4 mg PO Q6H PRN PRN Reason: Nausea able to take PO Ondansetron HCl (Zofran) 4 mg IV Q6H PRN PRN Reason: Nausea/Vomiting Pantoprazole Sodium (Protonix) 40 mg PO QPM LAZARO Last Admin: 12/18/18 16:54 Dose: 40 mg Senna/Docusate Sodium (Senna Plus) 1 tab PO BID PRN PRN Reason: Constipation Last Admin: 12/19/18 08:48 Dose: 1 tab Sodium Chloride (Saline Flush) 10 ml FLUSH ASDIRECTED PRN PRN Reason: Keep Vein Open Discontinued Medications Acetaminophen (Tylenol Extra Strength) 1,000 mg PO ONETIME ONE Stop: 12/17/18 12:06 Last Admin: 12/17/18 12:46 Dose: Not Given Acetaminophen (Tylenol) 650 mg RECTAL NOW ONE Stop: 12/17/18 12:48 Last Admin: 12/17/18 13:14 Dose: 650 mg Belladonna Alkaloids/Opium (B & O Supprettes No. 15a) 1 supp RECTAL ONETIME ONE Stop: 12/17/18 11:21 Last Admin: 12/17/18 11:28 Dose: 1 supp Hydrocortisone Sodium Succinate (Solu-Cortef) 100 mg IVPUSH ONETIME ONE Stop: 12/17/18 15:31 Last Admin: 12/17/18 14:40 Dose: 100 mg Hydrocortisone Sodium Succinate (Solu-Cortef) 100 mg IVPUSH ONETIME ONE Stop: 12/18/18 09:31 Last Admin: 12/18/18 09:35 Dose: 100 mg Hydromorphone HCl (Dilaudid) 0.5 mg IVPUSH ONETIME ONE Stop: 12/17/18 11:28 Last Admin: 12/17/18 11:31 Dose: 0.5 mg Lactated Ringer's (Ringers, Lactated) 1,000 mls @ 1,000 mls/hr IV BOLUS ONE Stop: 12/17/18 10:24 Last Admin: 12/17/18 09:53 Dose: 1,000 mls/hr Sodium Chloride (Normal Saline) 80 mls @ 3.5 mls/sec IV ONETIME ONE Stop: 12/17/18 10:12 Last Admin: 12/17/18 10:49 Dose: 3.5 mls/sec Ceftazidime 1 gm/ Sodium (Chloride) 50 mls @ 100 mls/hr IV Q8HR [facility] Last Admin: 12/17/18 12:35 Dose: 100 mls/hr Sodium Chloride (Normal Saline) 1,000 mls @ 999 mls/hr IV ASDIRECTED [facility] Stop: 12/17/18 13:01 Last Admin: 12/17/18 12:18 Dose: 999 mls/hr Lactated Ringer's (Ringers, Lactated) 1,000 mls @ 999 mls/hr IV ASDIRECTED [facility] Stop: 12/17/18 13:31 Last Admin: 12/17/18 12:42 Dose: 999 mls/hr Sodium Chloride (Normal Saline) 1,000 mls @ 100 mls/hr IV ASDIRECTED [facility] Last Admin: 12/18/18 00:14 Dose: 100 mls/hr Ceftazidime 1 gm/ Sodium (Chloride) 50 mls @ 100 mls/hr IV Q8HR [facility] Last Admin: 12/19/18 05:09 Dose: 100 mls/hr Sodium Chloride (Normal Saline) 1,000 mls @ 500 mls/hr IV ASDIRECTED [facility] Stop: 12/17/18 17:46 Last Admin: 12/17/18 16:22 Dose: 500 mls/hr Sodium Chloride (Normal Saline) 1,000 mls @ 500 mls/hr IV .BOLUS ONE Stop: 12/17/18 20:20 Last Admin: 12/17/18 18:42 Dose: 500 mls/hr Vancomycin HCl 2 gm/ Sodium (Chloride) 500 mls @ 300 mls/hr IV ONETIME ONE Stop: 12/18/18 03:09 Last Admin: 12/18/18 02:21 Dose: 300 mls/hr Iopamidol (Isovue-370 (76%)) 100 ml IV . DIRECTED [facility]ZARO Stop: 12/18/18 10:16 Last Admin: 12/17/18 10:49 Dose: 80 ml Ketorolac Tromethamine (Toradol) 30 mg IVPUSH Q6H PRN PRN Reason: Fever Stop: 12/22/18 12:27 Last Admin: 12/17/18 21:40 Dose: 30 mg Lidocaine HCl (Xylocaine 2% Jelly) 10 ml MUCMEM ONETIME ONE Stop: 12/17/18 11:32 Last Admin: 12/17/18 12:33 Dose: 10 ml Pantoprazole Sodium (Protonix Iv) 40 mg IV Q24H [facility] Last Admin: 12/17/18 15:17 Dose: 40 mg Sodium Chloride (Saline Flush) 10 ml FLUSH ONETIME ONE Stop: 12/17/18 10:12 Last Admin: 12/17/18 10:50 Dose: 10 ml Vancomycin HCl (Vancomycin) Confirm Administered Dose 2 gm .ROUTE .STK-MED ONE Stop: 12/18/18 02:03 Last Admin: 12/18/18 02:34 Dose: Not Given - Exam Quality Assessment: No: Supplemental Oxygen General: Alert, Oriented, Cooperative, No Acute Distress Lungs: Clear to Auscultation, Normal Respiratory Effort Cardiovascular: Regular Rhythm, Tachycardia GI/Abdominal Exam: Soft, No Distention Extremities: No Pedal Edema, Other (edema of both hands). No: Increased Warmth Skin: Warm, Dry Psy/Mental Status: Alert, Normal Affect - Problem List & Annotations (1) Complicated urinary tract infection SNOMED Code(s): 26036480 Code(s): N39.0 - URINARY TRACT INFECTION, SITE NOT SPECIFIED Status: Acute Current Visit: Yes (2) Sepsis SNOMED Code(s): 50435094 Code(s): A41.9 - SEPSIS, UNSPECIFIED ORGANISM Status: Resolved Current Visit: Yes Qualifiers: Sepsis type: Escherichia coli Qualified Code(s): A41.51 - Sepsis due to Escherichia coli [E. coli] (3) Gross hematuria SNOMED Code(s): 467697188 Code(s): R31.0 - GROSS HEMATURIA Status: Acute Current Visit: Yes (4) KAIN (acute kidney injury) SNOMED Code(s): 22431778, 74339692 Code(s): N17.9 - ACUTE KIDNEY FAILURE, UNSPECIFIED Status: Acute Current Visit: Yes (5) Essential hypertension SNOMED Code(s): 71246014 Code(s): I10 - ESSENTIAL (PRIMARY) HYPERTENSION Status: Chronic Current Visit: Yes (6) Diabetes mellitus type 2 in obese SNOMED Code(s): 68268139 Code(s): E11.69 - TYPE 2 DIABETES MELLITUS WITH OTHER SPECIFIED COMPLICATION ; E66.9 - OBESITY, UNSPECIFIED Status: Chronic Current Visit: Yes (7) Hyperkalemia SNOMED Code(s): 71800142 Code(s): E87.5 - HYPERKALEMIA Status: Acute Current Visit: Yes (8) Septic shock SNOMED Code(s): 94526670 Code(s): A41.9 - SEPSIS, UNSPECIFIED ORGANISM; R65.21 - SEVERE SEPSIS WITH SEPTIC SHOCK Status: Acute Current Visit: Yes - Problem List Review Problem List Initiated/Reviewed/Updated: Yes - My Orders Last 24 Hours: My Active Orders 12/18/18 09:30 Sodium Chloride 0.9% [Normal Saline] 1,000 ml IV ASDIRECTED 12/18/18 17:00 Pantoprazole [ProTONIX] 40 mg PO QPM 12/19/18 08:56 Dietary Supplements [RC] BIDMEALS 12/19/18 09:00 Meropenem [Merrem] 500 mg Sodium Chloride 0.9% [Normal Saline] 50 ml IV Q8H 12/19/18 09:43 Hydrocortisone Sod Succinate [Solu-CORTEF] 100 mg IVPUSH ONETIME ONE Central Line PICC Insertion [Central Venous Line Insertion] [OM.PC] Routine 12/20/18 05:00 BASIC METABOLIC PANEL,BMP [CHEM] Timed CBC W/O DIFF,HEMOGRAM [HEME] Timed (1) LACTIC ACID [CHEM] Timed - Plan Plan:: ASSESSMENT AND PLAN - Complicated urinary tract infection with septic shock - norepinephrine decreasing, lactic acid decreasing, white blood cell count decreasing. Urine culture and blood cultures with ESBL positive Escherichia coli. -Change antibiotics to meropenem -Gentle fluids -Stress dose steroids again this morning -Continue vasopressors, wean as able -Follow-up cultures Gross hematuria - history of prostate cancer and radiation. 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 Ongoing significant hematuria with high flow on the CBI. Hemoglobin of 7.6 this morning. -Continuous bladder irrigation to keep urine light pink to clear -Repeat hemoglobin this afternoon and in the morning -Infection management as above Acute kidney injury - creatinine had risen to 1.9 and is now down to 1.6. Urine output difficult to determine with CBI. -Management as above and labs in the morning Type 2 diabetes mellitus - hyperglycemia in the setting of sepsis and steroid use. -Hold metformin -Medium dose sliding scale insulin Essential hypertension - hypotensive as above. -Hold home medications Prostate cancer - history of radiation to the prostate. Additional history unobtainable at this time. Maintenance issues - - DVT prophylaxis - mechanical - GI prophylaxis - PPI - Nutrition - as tolerated - Jacobson catheter - three-way irrigating catheter placed in the emergency room Disposition - I would anticipate discharge home after the hospital stay Marques Millan M.D.
[2018-12-19] MEDS: Meropenem 500 MG in Sodium Chloride 0.9% 50 ML IV SCH ×2 (09:55→17:12)
[2018-12-19] MEDS ORDERED: Hydrocortisone Sodium Succinate 100 MG/2 ML SDV IVPUSH ONE (10:15)
[2018-12-19] MEDS: Sodium Chloride 0.9% 1,000 ML IV SCH (12:14)
[2018-12-19] MEDS: Acetaminophen 325 MG Tab PO PRN ×2 (14:08→22:56)
[2018-12-19] MEDS: Pantoprazole 40 MG Tab.CR PO SCH (17:12)
[2018-12-19] MEDS ORDERED: Insulin Lispro 100 Unit/ML 3 ML KwikPen SUBCUT ONE (17:30)
[2018-12-19] MEDS ORDERED: Insulin Lispro 100 Units/ML 3 ML Vial SUBCUT STA (20:19)
[2018-12-19] MEDS: LORazepam 2 MG/ML SDV IVPUSH PRN (22:56)
[2018-12-20] MEDS: Meropenem 500 MG in Sodium Chloride 0.9% 50 ML IV SCH ×2 (03:00→08:28)
[2018-12-20] MEDS: Sodium Chloride 0.9% 1,000 ML IV SCH (08:19)
[2018-12-20] MEDS: Insulin Lispro 100 Unit/ML 3 ML KwikPen SUBCUT SCH ×2 (08:30→11:17)
[2018-12-20] MEDS ORDERED: Furosemide 40 MG/4 ML VIAL IVPUSH ONE (09:30)
--- NOTE | 2018-12-20 10:06 | PCM.DCSUM1 ---
Discharge Summary - Hospital Course Brief History: 78-year-old male with history of prostate cancer status post prostatectomy and radiation, to previous episodes of hematuria, non-insulin- dependent diabetes mellitus, stage III kidney disease who presented with hematuria and weakness. He was admitted for management of gross hematuria, complicated urinary tract infection, sepsis and acute kidney injury. Diagnosis: Stroke: No - Discharge Data Discharge Date: 12/20/18 Discharge Disposition: DC/Tfer to [facility] 02 Condition: Stable - Discharge Diagnosis/Problem(s) (1) Complicated urinary tract infection SNOMED Code(s): 81250085 ICD Code: N39.0 - URINARY TRACT INFECTION, SITE NOT SPECIFIED Status: Acute Current Visit: Yes (2) Septic shock SNOMED Code(s): 23667648 ICD Code: A41.9 - SEPSIS, UNSPECIFIED ORGANISM; R65.21 - SEVERE SEPSIS WITH SEPTIC SHOCK Status: Acute Current Visit: Yes Problem Details: ESBL E coli (3) Sepsis SNOMED Code(s): 43954887 ICD Code: A41.9 - SEPSIS, UNSPECIFIED ORGANISM Status: Resolved Current Visit: Yes Qualifiers: Sepsis type: Escherichia coli Qualified Code(s): A41.51 - Sepsis due to Escherichia coli [E. coli] (4) Gross hematuria SNOMED Code(s): 328988372 ICD Code: R31.0 - GROSS HEMATURIA Status: Acute Current Visit: Yes (5) KAIN (acute kidney injury) SNOMED Code(s): 75693711, 10472458 ICD Code: N17.9 - ACUTE KIDNEY FAILURE, UNSPECIFIED Status: Acute Current Visit: Yes (6) Anemia due to blood loss, acute SNOMED Code(s): 796655449 ICD Code: D62 - ACUTE POSTHEMORRHAGIC ANEMIA Status: Acute Current Visit : Yes (7) Hyperkalemia SNOMED Code(s): 13577029 ICD Code: E87.5 - HYPERKALEMIA Status: Acute Current Visit: Yes (8) Essential hypertension SNOMED Code(s): 76055366 ICD Code: I10 - ESSENTIAL (PRIMARY) HYPERTENSION Status: Chronic Current Visit: Yes (9) Diabetes mellitus type 2 in obese SNOMED Code(s): 13857055 ICD Code: E11.69 - TYPE 2 DIABETES MELLITUS WITH OTHER SPECIFIED COMPLICATION ; E66.9 - OBESITY, UNSPECIFIED Status: Chronic Current Visit: Yes - Patient Summary/Data Hospital Course: John presented to the emergency room with 2 days of hematuria. On the first emergency room visit a Jacobson catheter was placed with good relief of his abdominal pain. He went home but unfortunately couple of hours later came back with increasing abdominal pain and a catheter that was no longer draining. A three-way catheter was placed at that time for continuous bladder irrigation. While the patient was in the emergency room his heart rate silvano very quickly up to 150 and he became obtunded. Laboratory studies at that time showed a white blood cell count of 7.6, lactic acid was mildly elevated and creatinine was 1.4. His d-dimer was mildly elevated and there was some concern that he may have a pulmonary embolism with his history of prostate cancer. CT pulmonary angiogram was unremarkable. Urinalysis was obtained and sent for culture. Sepsis secondary to a urinary tract infection was suspected. The patient was started on ceftazidime and provided a 30 mL/kg fluid bolus. Blood cultures were obtained prior to starting antibiotics. The patient was admitted to the intensive care unit. He received a total of 5 L of IV fluid for resuscitation during the early part of the hospital stay. He is chronically on prednisone so he did receive 100 mg of hydrocortisone at the time of admission. Initially his blood pressures were acceptable but did deteriorate. He was started on norepinephrine the night after admission since his hypotension was no longer volume responsive. Lactic acid level did rise to more than 6 before slowly trending down. Over the course of the first 24 hours his norepinephrine was titrated to a peak of 9. Heart rate did slowly trend down with the volume resuscitation and initiation of vasopressors. Mental status did improve after initially being obtunded. By the morning after admission he is much more alert and interactive. By the morning after admission all 4 blood cultures and his urine culture growing gram-negative rods with identification pending. He received a second dose of the stress dose steroids. Regarding his gross hematuria that was present on admission, continuous bladder irrigation was initiated in the emergency room and continued throughout the hospital stay. He required large volumes of normal saline irrigation to maintain flow and if the flow was decreased he often developed clots which led to abdominal pain. His hemoglobin at the time of presentation was 10.6 and this did trend down over 2 days to 7 on 12/19. He did receive a unit of blood on this day. Starting on 12/18 we were able to slowly decrease his norepinephrine and finally weaned off on 12/19. He received a third dose of stress dose steroids on 12/19. He had not required additional vasopressors since that time. On 12/19 his cultures returned growing an ESBL Escherichia coli. Antibiotics were changed to meropenem at this time. White blood cell count has been trending down and clinically is doing better. Unfortunately he has had ongoing hematuria throughout the course of the hospital stay. Hemoglobin was 7.5 on the day of discharge but his heart rate has risen from 110 up to 120s today so I did elect to give him a second unit of packed red blood cells prior to transfer. He has not had any fevers and from an infection standpoint seems to be doing well. With ongoing hematuria and high volumes of saline necessary to keep the urine flowing I did call to talk to urology. They recommended transfer for discussion about potential treatment options. I believe transfers warranted in this case with anemia due to acute blood loss related to his hematuria and ongoing difficulties. Complicating the bleeding picture is chronic thrombocytopenia though his levels are above his normal range at this time just less than 100. I suspect there is significant platelet dysfunction related to the sepsis. The patient is stable at this time and the benefits of transfer far outweigh the risks. Abx: Ceftazidime 12/17 - 12/19 Meropenem started 12/19 Norepinephrine 12/17 to 12/19 Creat 1.4 to 1.9 to 1.6 to 1.4 Hgb 10.6 to 9.3 to 7.6 to 7 (1 unit pRBC) to 7.4 to 7.5 (1 unit pRBC w/ HR 125) WBC 7.6 to 28.1 to 19 to 17.5 Urine and blood cultures - ESBL E coli - Patient Instructions Diet: Diabetic Diet Activity: As Tolerated Notify Provider of: Fever, Increased Pain Other/Special Instructions: Transfer to [place] in [place]. -Dx Septic shock, complicated UTI, gross hematuria. -Dr Ferguson accepting hospitalist - Discharge Plan *PRESCRIPTION DRUG MONITORING PROGRAM REVIEWED*: No *COPY OF PRESCRIPTION DRUG MONITORING REPORT IN PATIENT WILFREDO: No Home Medications: Home Meds Amitriptyline [Elavil] 25 mg PO BEDTIME 12/17/18 [History] Linagliptin [Tradjenta] 1 tab PO DAILY 12/17/18 [History] Losartan [Cozaar] 100 mg PO DAILY 12/17/18 [History] Omeprazole 1 tab PO BID 12/17/18 [History] amLODIPine [Norvasc] 5 mg PO DAILY 12/17/18 [History] metFORMIN [Glucophage] 500 mg PO BIDMEALS 12/17/18 [History] predniSONE [Prednisone] 1 tab PO ASDIRECTED 12/17/18 [History] Oxygen Therapy Mode: Room Air Patient Handouts: Sepsis, Adult Referrals: PCP,None [Primary Care Provider] - - Discharge Summary/Plan Comment DC Time >30 min.: Yes (60 - transfer to acute hospital ) - Patient Data Vitals - Most Recent: Last Vital Signs Temp 36.8 C 12/20/18 09:00 Pulse 127 H 12/20/18 09:00 Resp 19 12/20/18 09:00 BP 128/58 L 12/20/18 09:00 Pulse Ox 98 12/20/18 09:00 Orthostatic Blood Pressure [ 116/48 Standing] Orthostatic Blood Pressure [ 174/73 Sitting] Orthostatic Blood Pressure [ 179/92 Supine] Weight - Most Recent: 99.79 kg I&O - Last 24 hours: Intake & Output 12/19/18 12/20/18 12/20/18 22:59 06:59 14:59 Intake Total 1905 650 Output Total 9250 Balance -7946 650 Lab Results - Last 24 hrs: Laboratory Results - last 24 hr 12/19/18 12/19/18 12/19/18 Range/Units 05:00 15:00 22:00 WBC (4.5-11.0) K/uL RBC (4.30-5.90) M/uL Hgb 7.0 L 7.4 L (12.0-15.0) g/dL Hct (40.0-54.0) % MCV (80-98) fL MCH (27-31) pg MCHC (32-36) % Plt Count (150-400) K/uL Sodium (140-148) mmol/L Potassium (3.6-5.2) mmol/L Chloride (100-108) mmol/L Carbon Dioxide (21-32) mmol/L Anion Gap (5.0-14.0) mmol/L BUN (7-18) mg/dL Creatinine (0.8-1.3) mg/dL Est Cr Clr Drug Dosing mL/min Estimated GFR (MDRD) (>60) Glucose (74-106) mg/dL Lactic Acid (0.4-2.0) mmol/L Calcium (8.5-10.1) mg/dL Blood Type A POSITIVE Gel Antibody Screen Negative Crossmatch See Detail 12/20/18 12/20/18 12/20/18 Range/Units 05:43 05:43 05:43 WBC 17.5 H (4.5-11.0) K/uL RBC 2.86 L (4.30-5.90) M/uL Hgb 7.5 L (12.0-15.0) g/dL Hct 24.6 L (40.0-54.0) % MCV 86 (80-98) fL MCH 26 L (27-31) pg MCHC 31 L (32-36) % Plt Count 98 L (150-400) K/uL Sodium 138 L (140-148) mmol/L Potassium 3.7 (3.6-5.2) mmol/L Chloride 106 (100-108) mmol/L Carbon Dioxide 20 L (21-32) mmol/L Anion Gap 15.7 H (5.0-14.0) mmol/L BUN 26 H (7-18) mg/dL Creatinine 1.4 H (0.8-1.3) mg/dL Est Cr Clr Drug Dosing 46.46 mL/min Estimated GFR (MDRD) 49 L (>60) Glucose 177 H (74-106) mg/dL Lactic Acid 4.0 H (0.4-2.0) mmol/L Calcium 8.5 (8.5-10.1) mg/dL Blood Type Gel Antibody Screen Crossmatch ESVIN Results - Last 24 hrs: Microbiology 12/17/18 12:14 Aerobic Blood Culture - Final Blood - Arm, Right (Esbl) Escherichia Coli Anaerobic Blood Culture - Final (Esbl) Escherichia Coli 12/17/18 12:10 Aerobic Blood Culture - Final Blood - Arm, Left (Esbl) Escherichia Coli Anaerobic Blood Culture - Final (Esbl) Escherichia Coli 12/17/18 09:34 Urine Culture - Final Urine, Catheterized (Esbl) Escherichia Coli Med Orders - Current: Current Medications Acetaminophen (Tylenol) 650 mg PO Q4H PRN PRN Reason: Pain (Mild 1-3)/fever Last Admin: 12/19/18 22:56 Dose: 650 mg Albuterol (Proventil Neb Soln) 2.5 mg NEB Q4H PRN PRN Reason: Shortness Of Breath/wheezing Last Admin: 12/20/18 03:56 Dose: 2.5 mg Hydromorphone HCl (Dilaudid) 0.5 mg IVPUSH Q2H PRN PRN Reason: Pain (severe 7-10) Last Admin: 12/19/18 08:16 Dose: 0.5 mg Norepinephrine Bitartrate 4 mg (/ Dextrose/Water) 250 mls @ 7.5 mls/hr IV TITRATE [facility]; Protocol Last Titration: 12/19/18 18:24 Dose: 0 mcg/min, 0 mls/hr Sodium Chloride (Normal Saline) 1,000 mls @ 0 mls/hr IV ASDIRECTED [facility] Last Admin: 12/20/18 08:19 Dose: 50 mls/hr Meropenem 500 mg/ Sodium (Chloride) 50 mls @ 100 mls/hr IV Q8H [facility] Last Admin: 12/20/18 08:28 Dose: 100 mls/hr Insulin Human Lispro (Humalog) 0 unit SUBCUT QIDACANDBED [facility]; Protocol Last Admin: 12/20/18 08:30 Dose: 2 units Ketorolac Tromethamine (Toradol) 15 mg IVPUSH Q6H PRN PRN Reason: Fever Stop: 12/22/18 12:27 Last Admin: 12/18/18 22:01 Dose: 15 mg Lorazepam (Ativan) 0.5 mg IVPUSH Q4H PRN PRN Reason: Nausea/Vomiting Last Admin: 12/19/18 22:56 Dose: 0.5 mg Magnesium Hydroxide (Milk Of Magnesia) 30 ml PO Q12H PRN PRN Reason: Constipation Ondansetron HCl (Zofran Odt) 4 mg PO Q6H PRN PRN Reason: Nausea able to take PO Ondansetron HCl (Zofran) 4 mg IV Q6H PRN PRN Reason: Nausea/Vomiting Pantoprazole Sodium (Protonix) 40 mg PO QPM [facility] Last Admin: 12/19/18 17:12 Dose: 40 mg Senna/Docusate Sodium (Senna Plus) 1 tab PO BID PRN PRN Reason: Constipation Last Admin: 12/19/18 08:48 Dose: 1 tab Sodium Chloride (Saline Flush) 10 ml FLUSH ASDIRECTED PRN PRN Reason: Keep Vein Open Discontinued Medications Acetaminophen (Tylenol Extra Strength) 1,000 mg PO ONETIME ONE Stop: 12/17/18 12:06 Last Admin: 12/17/18 12:46 Dose: Not Given Acetaminophen (Tylenol) 650 mg RECTAL NOW ONE Stop: 12/17/18 12:48 Last Admin: 12/17/18 13:14 Dose: 650 mg Belladonna Alkaloids/Opium (B & O Supprettes No. 15a) 1 supp RECTAL ONETIME ONE Stop: 12/17/18 11:21 Last Admin: 12/17/18 11:28 Dose: 1 supp Furosemide (Lasix) 40 mg IVPUSH ONETIME ONE Stop: 12/20/18 09:31 Last Admin: 12/20/18 09:45 Dose: 40 mg Hydrocortisone Sodium Succinate (Solu-Cortef) 100 mg IVPUSH ONETIME ONE Stop: 12/17/18 15:31 Last Admin: 12/17/18 14:40 Dose: 100 mg Hydrocortisone Sodium Succinate (Solu-Cortef) 100 mg IVPUSH ONETIME ONE Stop: 12/18/18 09:31 Last Admin: 12/18/18 09:35 Dose: 100 mg Hydrocortisone Sodium Succinate (Solu-Cortef) 100 mg IVPUSH ONETIME ONE Stop: 12/19/18 10:16 Last Admin: 12/19/18 12:40 Dose: 100 mg Hydromorphone HCl (Dilaudid) 0.5 mg IVPUSH ONETIME ONE Stop: 12/17/18 11:28 Last Admin: 12/17/18 11:31 Dose: 0.5 mg Lactated Ringer's (Ringers, Lactated) 1,000 mls @ 1,000 mls/hr IV BOLUS ONE Stop: 12/17/18 10:24 Last Admin: 12/17/18 09:53 Dose: 1,000 mls/hr Sodium Chloride (Normal Saline) 80 mls @ 3.5 mls/sec IV ONETIME ONE Stop: 12/17/18 10:12 Last Admin: 12/17/18 10:49 Dose: 3.5 mls/sec Ceftazidime 1 gm/ Sodium (Chloride) 50 mls @ 100 mls/hr IV Q8HR [facility] Last Admin: 12/17/18 12:35 Dose: 100 mls/hr Sodium Chloride (Normal Saline) 1,000 mls @ 999 mls/hr IV ASDIRECTED [facility] Stop: 12/17/18 13:01 Last Admin: 12/17/18 12:18 Dose: 999 mls/hr Lactated Ringer's (Ringers, Lactated) 1,000 mls @ 999 mls/hr IV ASDIRECTED [facility] Stop: 12/17/18 13:31 Last Admin: 12/17/18 12:42 Dose: 999 mls/hr Sodium Chloride (Normal Saline) 1,000 mls @ 100 mls/hr IV ASDIRECTED [facility] Last Admin: 12/18/18 00:14 Dose: 100 mls/hr Ceftazidime 1 gm/ Sodium (Chloride) 50 mls @ 100 mls/hr IV Q8HR [facility] Last Admin: 12/19/18 05:09 Dose: 100 mls/hr Sodium Chloride (Normal Saline) 1,000 mls @ 500 mls/hr IV ASDIRECTED [facility] Stop: 12/17/18 17:46 Last Admin: 12/17/18 16:22 Dose: 500 mls/hr Sodium Chloride (Normal Saline) 1,000 mls @ 500 mls/hr IV .BOLUS ONE Stop: 12/17/18 20:20 Last Admin: 12/17/18 18:42 Dose: 500 mls/hr Vancomycin HCl 2 gm/ Sodium (Chloride) 500 mls @ 300 mls/hr IV ONETIME ONE Stop: 12/18/18 03:09 Last Admin: 12/18/18 02:21 Dose: 300 mls/hr Insulin Human Lispro (Humalog) 0 unit SUBCUT QIDACANDBED [facility]; Protocol Last Admin: 12/19/18 12:31 Dose: 3 units Insulin Human Lispro (Humalog) 6 unit SUBCUT ONETIME ONE Stop: 12/19/18 17:31 Last Admin: 12/19/18 17:43 Dose: 6 units Insulin Human Lispro (Humalog) 12 unit SUBCUT ONETIME STA Stop: 12/19/18 20:20 Last Admin: 12/19/18 20:31 Dose: 12 unit Iopamidol (Isovue-370 (76%)) 100 ml IV . DIRECTED [facility] Stop: 12/18/18 10:16 Last Admin: 12/17/18 10:49 Dose: 80 ml Ketorolac Tromethamine (Toradol) 30 mg IVPUSH Q6H PRN PRN Reason: Fever Stop: 12/22/18 12:27 Last Admin: 12/17/18 21:40 Dose: 30 mg Lidocaine HCl (Xylocaine 2% Jelly) 10 ml MUCMEM ONETIME ONE Stop: 12/17/18 11:32 Last Admin: 12/17/18 12:33 Dose: 10 ml Pantoprazole Sodium (Protonix Iv) 40 mg IV Q24H [facility] Last Admin: 12/17/18 15:17 Dose: 40 mg Sodium Chloride (Saline Flush) 10 ml FLUSH ONETIME ONE Stop: 12/17/18 10:12 Last Admin: 12/17/18 10:50 Dose: 10 ml Vancomycin HCl (Vancomycin) Confirm Administered Dose 2 gm .ROUTE .STK-MED ONE Stop: 12/18/18 02:03 Last Admin: 12/18/18 02:34 Dose: Not Given - Exam Quality Assessment: Denies: Supplemental Oxygen General: Reports: Alert, Oriented, Cooperative, No Acute Distress Lungs: Reports: Normal Respiratory Effort, Crackles (both bases) Cardiovascular: Reports: Regular Rhythm, Tachycardia GI/Abdominal Exam: Soft, Distended Extremities: No Pedal Edema, Other (mild swelling right hand and left forearm ) Skin: Reports: Warm, Dry Psy/Mental Status: Reports: Alert, Normal Affect *Q Meaningful Use (DIS) - VTE *Q VTE Pharmacological Contraindications *Q: Active Hemorrhage
== END 2018-12-20 11:37 | DRG 871 ==
LOC: JP.ED 07:59 → JP.ICU 12:19
PROVIDERS: ADMIT Internal Medicine; ATTEND Internal Medicine
PROC: 30233N1 Transfusion of Nonautologous Red Blood Cells into Peripheral Vein, Percutaneous Approach (ICD-10-PCS; principal; 2018-12-19)
PROC: 30233N1 Transfusion of Nonautologous Red Blood Cells into Peripheral Vein, Percutaneous Approach (ICD-10-PCS; 2018-12-20)
DX: A41.9 Sepsis, unspecified organism (principal); A41.51 Sepsis due to Escherichia coli [E. coli]; R65.21 Severe sepsis with septic shock; N39.0 Urinary tract infection, site not specified; R00.0 Tachycardia, unspecified; R74.0 Nonspecific elevation of levels of transaminase and lactic acid dehydrogenase [LDH]; N17.9 Acute kidney failure, unspecified; I12.9 Hypertensive chronic kidney disease with stage 1 through stage 4 chronic kidney disease, or unspecified chronic kidney disease; I10 Essential (primary) hypertension; E11.22 Type 2 diabetes mellitus with diabetic chronic kidney disease; R31.0 Gross hematuria; N18.3 Chronic kidney disease, stage 3 (moderate); D69.6 Thrombocytopenia, unspecified; N32.9 Bladder disorder, unspecified; E11.65 Type 2 diabetes mellitus with hyperglycemia; E87.5 Hyperkalemia; Z79.84 Long term (current) use of oral hypoglycemic drugs; Z79.52 Long term (current) use of systemic steroids; D50.0 Iron deficiency anemia secondary to blood loss (chronic); R79.1 Abnormal coagulation profile; I95.1 Orthostatic hypotension; Z85.46 Personal history of malignant neoplasm of prostate; Z90.79 Acquired absence of other genital organ(s); E78.00 Pure hypercholesterolemia, unspecified; Z92.3 Personal history of irradiation; E66.9 Obesity, unspecified
CPT/HCPCS: 36415; 51702; 71275; 80048; 83605; 84484; 85027; 85379; 87040 ×2; 87077 ×2; 87086; 87088; 87186 ×3; 93005; 96361; 96374; 99285; A9270; J1170; J7030 ×2; J7120; Q9967; 36430; 51700; 80053; 82962; 83735; 85018; 86850; 86900; 86901; 86920; 86922; 94640; C9113; J0713; J1720; J1815; J1815-GY; J1885; J1940; J2060; J2185; J3370; J7040; J7050; J7060; P9016

== ENCOUNTER 2019-01-15 04:00 | Emergency (ER) | payer MEDICARE, OTHER ==
[2019-01-15] MEDS ORDERED: Lidocaine 2% Jelly 10 ML Urojet MUCMEM ONE (05:07)
--- NOTE | 2019-01-15 05:44 | EDM.PDOC ---
ED HPI GENERAL MEDICAL PROBLEM - General Chief Complaint: Genitourinary Problem Stated Complaint: TROUBLE URINATING Time Seen by Provider: 01/15/19 04:39 Source of Information: Reports: Patient History Limitations: Reports: No Limitations - History of Present Illness INITIAL COMMENTS - FREE TEXT/NARRATIVE: This patient is here for urinary retention. He's had a problem with bleeding in the bladder and that's related to previous radiation treatments for prostate cancer. The bleeders were cauterized on about December 21 and then it was repeated several days later but it's been at least 2 weeks since that was done. Tonight he passed a large clot and then later the bladder has clogged up and become obstructed. He's having a lot of discomfort from a distended bladder. Lower Abdomen Pain Score (Numeric/FACES): 10 - Related Data Allergies Allergy/AdvReac Type Severity Reaction Status Date / Time No Known Allergies Allergy Verified 12/17/18 08:36 Home Meds: Home Meds Amitriptyline [Elavil] 25 mg PO BEDTIME 12/17/18 [History] Linagliptin [Tradjenta] 1 tab PO DAILY 12/17/18 [History] Losartan [Cozaar] 100 mg PO DAILY 12/17/18 [History] Omeprazole 1 tab PO BID 12/17/18 [History] metFORMIN [Glucophage] 500 mg PO BIDMEALS 12/17/18 [History] predniSONE [Prednisone] 1 tab PO ASDIRECTED 12/17/18 [History] Past Medical History HEENT History: Reports: Impaired Vision Cardiovascular History: Reports: High Cholesterol, Hypertension Respiratory History: Reports: Other (See Below) Other Respiratory History: hystoplasmosis removed Gastrointestinal History: Reports: None Genitourinary History: Reports: Renal Calculus, Other (See Below) Other Genitourinary History: prostate cancer Musculoskeletal History: Reports: Arthritis Endocrine/Metabolic History: Reports: Diabetes, Type II, Other (See Below) Oncologic (Cancer) History: Reports: Prostate, Other (See Below) Other Oncologic History: radiation treatments - Infectious Disease History Infectious Disease History: Reports: Chicken Pox - Past Surgical History HEENT Surgical History: Reports: Adenoidectomy, Cataract Surgery, Tonsillectomy , Other (See Below) Other HEENT Surgeries/Procedures: 2 other eye surgeries Cardiovascular Surgical History: Reports: None Respiratory Surgical History: Reports: Lung Resection, Thoracotomy GI Surgical History: Reports: Appendectomy, Cholecystectomy, Colonoscopy, Hernia , Inguinal Endocrine Surgical History: Reports: Thyroidectomy Musculoskeletal Surgical History: Reports: Carpal Tunnel, Shoulder Surgery, Other (See Below) Other Musculoskeletal Surgeries/Procedures:: back fusion with rods and screws 2010 Oncologic Surgical History: Reports: Other (See Below) Other Oncologic Surgeries/Procedures: prostatectomy Dermatological Surgical History: Reports: Skin Biopsy Social & Family History - Family History Family Medical History: Noncontributory - Tobacco Use Smoking Status *Q: Never Smoker - Caffeine Use Caffeine Use: Reports: None - Recreational Drug Use Recreational Drug Use: No ED ROS GENERAL - Review of Systems Review Of Systems: ROS reveals no pertinent complaints other than HPI. ED EXAM, RENAL/ - Physical Exam Exam: See Below Exam Limited By: No Limitations General Appearance: Alert, WD/WN, Mild Distress (Looks uncomfortable) GI/Abdominal: Other ( distended bladder is palpable.) (Male) Exam: Other (Small amount of blood at the urethral meatus) Course - Vital Signs Last Recorded V/S: Last Vital Signs Temp 35.9 C 01/15/19 04:16 Pulse 148 H 01/15/19 04:16 Resp 20 01/15/19 04:16 BP 146/92 H 01/15/19 04:16 Pulse Ox 98 01/15/19 04:16 - Orders/Labs/Meds Orders: Active Orders 24 hr Category Date Time Status Jacobson Catheter Insertion [Insert Urinary Catheter] [OM. Care 01/15/19 04:45 Ordered PC] Q24H Urinary Catheter Assessment [RC] ASDIRECTED Care 01/15/19 04:45 Active Meds: Medications Discontinued Medications Generic Name Dose Route Start Last Admin Trade Name Jared PRN Reason Stop Dose Admin Lidocaine HCl 10 ml 01/15/19 05:07 01/15/19 05:13 Xylocaine 2% Jelly MUCMEM 01/15/19 05:08 10 ml ONETIME ONE Administration - Re-Assessments/Exams Free Text/Narrative Re-Assessment/Exam: 01/15/19 05:44 Nurses were unable to insert a three-way catheter. Therefore a regular Jacobson was inserted and the bladder was irrigated. There is bleeding but no clots. I indwelling Jacobson was left in place. His indicates that she knows how to irrigate the catheter Departure - Departure Time of Disposition: :45 Disposition: Home, Self-Care 01 Condition: Fair Clinical Impression: Bladder outlet obstruction - Discharge Information Referrals: Arnol Sanchez MD [Primary Care Provider] - Forms: ED Department Discharge Additional Instructions: If the catheter clogs up again your made irrigated to clear it. Call the urologist Saturday morning and explained the situation. If you get to the point where there is no more bleeding and you are certain that it is stopped then you may remove the catheter. The nurse will show you how to do this - My Orders Last 24 Hours: My Active Orders 01/15/19 04:45 Jacobson Catheter Insertion [Insert Urinary Catheter] [OM.PC] Q24H Urinary Catheter Assessment [RC] ASDIRECTED - Assessment/Plan Last 24 Hours: My Active Orders 01/15/19 04:45 Jacobson Catheter Insertion [Insert Urinary Catheter] [OM.PC] Q24H Urinary Catheter Assessment [RC] ASDIRECTED
== END 2019-01-15 06:04 | disposition home or self-care (01) ==
LOC: JP.ED 04:00
DX: N32.0 Bladder-neck obstruction (principal); E78.00 Pure hypercholesterolemia, unspecified; I10 Essential (primary) hypertension; E11.9 Type 2 diabetes mellitus without complications; Z79.84 Long term (current) use of oral hypoglycemic drugs; Z85.46 Personal history of malignant neoplasm of prostate; Z79.899 Other long term (current) drug therapy; Z87.442 Personal history of urinary calculi
CPT/HCPCS: 51700; 99283; 99283-25

== ENCOUNTER 2019-01-16 00:25 | Emergency (ER) | payer MEDICARE, OTHER ==
[2019-01-16] MEDS ORDERED: Lidocaine 2% Jelly 10 ML Urojet MUCMEM ONE ×2 (01:30→01:31)
--- NOTE | 2019-01-16 03:27 | EDM.PDOC ---
ED HPI GENERAL MEDICAL PROBLEM - General Chief Complaint: Genitourinary Problem Stated Complaint: BLADDER PROBLEMS Time Seen by Provider: 01/16/19 01:22 Source of Information: Reports: Patient History Limitations: Reports: No Limitations - History of Present Illness INITIAL COMMENTS - FREE TEXT/NARRATIVE: This gentleman who was seen last night for hematuria and urinary retention and a Jacobson was put in. His I irrigated the catheter a couple of times when it would clog up but then finally tonight. It clotted off and she could no longer irrigate the catheter. She's also concerned about the amount of blood loss because when he was hospitalized a month ago he had to be transfused 2 units here and then had several more in [place]. When he left the hospital there is a hemoglobin was approximately 8.3. When he was seen in our hospital a month ago he was treated for septic shock related to urosepsis. Lower Abdomen Pain Score (Numeric/FACES): 8 - Related Data Allergies Allergy/AdvReac Type Severity Reaction Status Date / Time No Known Allergies Allergy Verified 12/17/18 08:36 Home Meds: Home Meds Amitriptyline [Elavil] 25 mg PO BEDTIME 12/17/18 [History] Linagliptin [Tradjenta] 1 tab PO DAILY 12/17/18 [History] Losartan [Cozaar] 100 mg PO DAILY 12/17/18 [History] Omeprazole 1 tab PO BID 12/17/18 [History] metFORMIN [Glucophage] 500 mg PO BIDMEALS 12/17/18 [History] predniSONE [Prednisone] 1 tab PO ASDIRECTED 12/17/18 [History] Past Medical History HEENT History: Reports: Impaired Vision Cardiovascular History: Reports: High Cholesterol, Hypertension Respiratory History: Reports: Other (See Below) Other Respiratory History: hystoplasmosis removed Gastrointestinal History: Reports: None Genitourinary History: Reports: Renal Calculus, Other (See Below) Other Genitourinary History: prostate cancer Musculoskeletal History: Reports: Arthritis Endocrine/Metabolic History: Reports: Diabetes, Type II, Other (See Below) Oncologic (Cancer) History: Reports: Prostate, Other (See Below) Other Oncologic History: radiation treatments - Infectious Disease History Infectious Disease History: Reports: Chicken Pox - Past Surgical History HEENT Surgical History: Reports: Adenoidectomy, Cataract Surgery, Tonsillectomy , Other (See Below) Other HEENT Surgeries/Procedures: 2 other eye surgeries Cardiovascular Surgical History: Reports: None Respiratory Surgical History: Reports: Lung Resection, Thoracotomy GI Surgical History: Reports: Appendectomy, Cholecystectomy, Colonoscopy, Hernia , Inguinal Endocrine Surgical History: Reports: Thyroidectomy Musculoskeletal Surgical History: Reports: Carpal Tunnel, Shoulder Surgery, Other (See Below) Other Musculoskeletal Surgeries/Procedures:: back fusion with rods and screws 2010 Oncologic Surgical History: Reports: Other (See Below) Other Oncologic Surgeries/Procedures: prostatectomy Dermatological Surgical History: Reports: Skin Biopsy Social & Family History - Family History Family Medical History: Noncontributory - Tobacco Use Smoking Status *Q: Never Smoker - Caffeine Use Caffeine Use: Reports: None - Recreational Drug Use Recreational Drug Use: No ED ROS GENERAL - Review of Systems Review Of Systems: ROS reveals no pertinent complaints other than HPI. ED EXAM, RENAL/ - Physical Exam Exam: See Below Exam Limited By: No Limitations General Appearance: Alert, WD/WN, Mild Distress Eye Exam: Bilateral Eye: Normal Inspection Throat/Mouth: Normal Inspection Respiratory/Chest: Lungs Clear Cardiovascular: Regular Rate, Rhythm, No Murmur GI/Abdominal: Non-Tender, Other (Catheter has been put in at the time of my exam ) Extremities: Normal Inspection Neurological: Alert Psychiatric: Normal Affect Skin Exam: Warm, Dry Course - Vital Signs Last Recorded V/S: Last Vital Signs Temp 37.2 C 01/16/19 01:00 Pulse 111 H 01/16/19 01:00 Resp 16 01/16/19 01:00 BP 136/79 01/16/19 01:00 Pulse Ox 98 01/16/19 01:00 - Orders/Labs/Meds Labs: Laboratory Tests 01/16/19 01/16/19 01/16/19 Range/Units 01:23 01:23 01:23 WBC 8.1 (4.5-11.0) K/uL RBC 3.33 L (4.30-5.90) M/uL Hgb 8.5 L (12.0-15.0) g/dL Hct 28.0 L (40.0-54.0) % MCV 84 (80-98) fL MCH 26 L (27-31) pg MCHC 30 L (32-36) % Plt Count 153 (150-400) K/uL Neut % (Auto) 62 (36-66) % Lymph % (Auto) 21 L (24-44) % [place] % (Auto) 13 H (2-6) % Eos % (Auto) 3 (2-4) % Baso % (Auto) 1 (0-1) % PT 12.8 H (9.5-12.0) sec INR 1.17 (0.80-1.20) APTT 32.9 (27.0-36.0) sec Sodium 138 L (140-148) mmol/L Potassium 3.9 (3.6-5.2) mmol/L Chloride 103 (100-108) mmol/L Carbon Dioxide 21 (21-32) mmol/L Anion Gap 17.9 H (5.0-14.0) mmol/L BUN 15 (7-18) mg/dL Creatinine 1.5 H (0.8-1.3) mg/dL Est Cr Clr Drug Dosing TNP Estimated GFR (MDRD) 46 L (>60) Glucose 192 H (74-106) mg/dL Calcium 9.0 (8.5-10.1) mg/dL Meds: Medications Discontinued Medications Generic Name Dose Route Start Last Admin Trade Name Freq PRN Reason Stop Dose Admin Lidocaine HCl 10 ml 01/16/19 01:31 01/16/19 01:51 Xylocaine 2% Jelly MUCMEM 01/16/19 01:32 10 ml ONETIME ONE Administration Lidocaine HCl 10 ml 01/16/19 01:30 01/16/19 02:20 Xylocaine 2% Jelly MUCMEM 01/16/19 01:31 Not Given ONETIME ONE - Re-Assessments/Exams Free Text/Narrative Re-Assessment/Exam: 01/16/19 03:25 The original catheter a 16 [place] was clotted off that was replaced with a 20 [place] which is actually draining some clots now. It's also leaking around catheter. I spoke with the urologist Dr. Forrest who would like him transferred there to [place] [facility] in [place] and I spoke with the hospitalist Dr. Lovelace. The family is unable to take him and will go by ground ambulance. 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
== END 2019-01-16 04:31 ==
LOC: JP.ED 00:25
DX: N30.41 Irradiation cystitis with hematuria (principal); E78.00 Pure hypercholesterolemia, unspecified; I10 Essential (primary) hypertension; E11.9 Type 2 diabetes mellitus without complications; Z79.899 Other long term (current) drug therapy; Z79.84 Long term (current) use of oral hypoglycemic drugs
CPT/HCPCS: 36415; 51702; 80048; 85025; 85610; 85730; 99284